=== PATIENT | female | born 1950 | race Caucasian/White ===

== ENCOUNTER 2020-04-06 13:09 | Inpatient (IN) | payer MEDICARE, OTHER ==
[~2020-04-06] VITALS: Ht 167.6 cm; Wt 104.0 kg
--- NOTE | 2020-04-06 13:33 | EKG ---
[address] [address] Test Date: 2020-04-06 Test Time: 13:30:25 Pat Name: MERARI BRADSHAW Department: Room: Gender: F Kiln Charger: : 1950 Requested By: YOLY NORRIS Order Number: [id number] Reading MD: Ozzie Rojas MD Measurements Intervals [place]son Rate: 75 P: 27 NE: 156 QRS: -25 QRSD: 96 T: -3 QT: 306 QTc: 344 Interpretive Statements SINUS RHYTHM NON-SPECIFIC ST/T CHANGES LAD Electronically Signed On 04-09-2020 12:17:53 CDT by Ozzie Rojas MD
[2020-04-06] MEDS ORDERED: CELE200C PO (13:47)
[2020-04-06] MEDS ORDERED: LOPE-101 PO (13:47)
[2020-04-06] MEDS ORDERED: CITA10TA4 PO (13:47)
[2020-04-06] MEDS ORDERED: FURO40TA4 PO (13:47)
[2020-04-06] MEDS ORDERED: CLOP75TA57 PO (13:47)
[2020-04-06] MEDS ORDERED: GABA100C81 PO (13:47)
[2020-04-06] MEDS ORDERED: ACET500T68 PO (13:47)
[2020-04-06] MEDS ORDERED: IBUP1TAB12 PO (13:47)
[2020-04-06] MEDS ORDERED: HYDR12.58 PO (13:47)
[2020-04-06] MEDS ORDERED: OMEP40CA45 PO (13:47)
[2020-04-06] MEDS ORDERED: SIMV20TA PO (13:47)
[2020-04-06] MEDS ORDERED: MELO15TA23 PO (13:47)
[2020-04-06] MEDS ORDERED: TRAM50TA PO (13:47)
[2020-04-06] MEDS ORDERED: DICL100G18 TP (13:47)
[2020-04-06] MEDS ORDERED: TRIA15OI TP (13:47)
[2020-04-06 13:54] LABS: BASO % 1 % (0-3); EOS # 0.1 x10^3/uL (0.0-0.7); EOS % 3 % (0-3); LYMPH # 1.6 x10^3/uL (1.0-4.8); LYMPH % 32 % (24-48); MEAN CORPUSCULAR HEMOGLOBIN 32 pg (25-35); MEAN CORPUSCULAR HGB CONC 33 g/dL (31-37); MEAN CORPUSCULAR VOLUME 95 fL (79-100); MONO # 0.4 x10^3/uL (0.0-1.1); MONO % 9 % (0-9); NEUT # 2.9 x10^3uL (1.8-7.7); NEUT % 56 % (31-73); PLATELET COUNT 244 x10^3/uL (140-400); RED BLOOD COUNT 4.13 x10^6/uL (3.50-5.40); RED CELL DISTRIBUTION WIDTH 13.6 % (11.5-14.5); WHITE BLOOD COUNT 5.1 x10^3/uL (4.0-11.0)
[2020-04-06 13:55] LABS: CALCIUM 8.9 mg/dL (8.5-10.1); CREATININE 0.7 mg/dL (0.6-1.0); GFR 82.7; POTASSIUM 3.7 mmol/L (3.5-5.1)
[2020-04-06] MEDS ORDERED: IOHEXOL 300 MG/ML 75 ML VIAL. IV ONE (14:00)
[2020-04-06 14:01] LABS: ALBUMIN 3.7 g/dL (3.4-5.0); ALBUMIN/GLOBULIN RATIO 1.1 (1.0-1.7); MAGNESIUM 2.2 mg/dL (1.8-2.4); TOTAL BILIRUBIN 0.5 mg/dL (0.2-1.0); TOTAL PROTEIN 7.1 g/dL (6.4-8.2)
--- NOTE | 2020-04-06 14:06 | PHYS DOC ---
Past History Past Medical History: Asthma, Cancer, Dementia, Depression, Fibromyalgia, GERD, Hypertension Past Surgical History: No Surgical History Alcohol Use: None General Adult EDM: Chief Complaint: MEDICAL CLEARANCE HPI: HPI: 6-year-old female presents for medical clearance of behavioral health admission. She is reported to be wandering, answering her door S, and having difficulty articulating thoughts. This is a change from her baseline over the last few weeks. Patient denies any medical complaints to me. Review of Systems: Review of Systems: Constitutional: Denies fever or chills Eyes: Denies change in visual acuity HENT: Denies nasal congestion or sore throat Respiratory: Denies cough or shortness of breath Cardiovascular: Denies chest pain or edema GI: Denies abdominal pain, nausea, vomiting, bloody stools or diarrhea : Denies dysuria Musculoskeletal: Denies back pain or joint pain Integument: Denies rash Neurologic: Denies headache, focal weakness or sensory changes Endocrine: Denies polyuria or polydipsia Lymphatic: Denies swollen glands Psychiatric: Denies depression or anxiety Heart Score: Risk Factors: Risk Factors: DM, Current or recent (<one month) smoker, HTN, HLP, family history of CAD, obesity. Risk Scores: Score 0 - 3: 2.5% MACE over next 6 weeks - Discharge Home Score 4 - 6: 20.3% MACE over next 6 weeks - Admit for Clinical Observation Score 7 - 10: 72.7% MACE over next 6 weeks - Early Invasive Strategies Current Medications: Current Meds: Current Medications Medications (Trade) Dose Ordered Sig/Henri Start Time Stop Time Status Last Admin Dose Admin Iohexol (Omnipaque 300 Mg/ml) 75 ml 1X ONCE 04/06/20 14:00 04/06/20 14:01 FL Allergies: Allergies: Allergies Coded Allergies Type Severity Reaction Last Updated Verified No Known Drug Allergies 04/06/20 No Physical Exam: PE: Constitutional: Well developed, obese, well nourished, no acute distress, non- toxic appearance. [] HENT: Normocephalic, atraumatic, bilateral external ears normal, oropharynx moist, no oral exudates, nose normal. [] Eyes: PERRLA, EOMI, conjunctiva normal, no discharge. [] Neck: Normal range of motion, no tenderness, supple, no stridor. [] Cardiovascular:Heart rate regular rhythm, no murmur [] Lungs & Thorax: Bilateral breath sounds clear to auscultation [] Abdomen: Bowel sounds normal, soft, no tenderness, no masses, no pulsatile masses. [] Skin: Warm, dry, no erythema, no rash. [] Back: No tenderness, no CVA tenderness. [] Extremities: No tenderness, no cyanosis, no clubbing, ROM intact, no edema. [] Neurologic: Alert, dementia, normal motor function, normal sensory function, no focal deficits noted. [] Psychologic: Affect normal, judgement normal, mood normal. [] Current Patient Data: Labs: Laboratory Tests Test 04/06/20 13:24 White Blood Count 5.1 x10^3/uL (4.0-11.0) Red Blood Count 4.13 x10^6/uL (3.50-5.40) Hemoglobin 13.0 g/dL (12.0-15.5) Hematocrit 39.0 % (36.0-47.0) Mean Corpuscular Volume 95 fL (79-100) Mean Corpuscular Hemoglobin 32 pg (25-35) Mean Corpuscular Hemoglobin Concent 33 g/dL (31-37) Red Cell Distribution Width 13.6 % (11.5-14.5) Platelet Count 244 x10^3/uL (140-400) Neutrophils (%) (Auto) 56 % (31-73) Lymphocytes (%) (Auto) 32 % (24-48) Monocytes (%) (Auto) 9 % (0-9) Eosinophils (%) (Auto) 3 % (0-3) Basophils (%) (Auto) 1 % (0-3) Neutrophils # (Auto) 2.9 x10^3uL (1.8-7.7) Lymphocytes # (Auto) 1.6 x10^3/uL (1.0-4.8) Monocytes # (Auto) 0.4 x10^3/uL (0.0-1.1) Eosinophils # (Auto) 0.1 x10^3/uL (0.0-0.7) Basophils # (Auto) 0.0 x10^3/uL (0.0-0.2) Sodium Level 142 mmol/L (136-145) Potassium Level 3.7 mmol/L (3.5-5.1) Chloride Level 106 mmol/L (98-107) Carbon Dioxide Level 26 mmol/L (21-32) Anion Gap 10 (6-14) Blood Urea Nitrogen 17 mg/dL (7-20) Creatinine 0.7 mg/dL (0.6-1.0) Estimated GFR (Cockcroft-Gault) 82.7 BUN/Creatinine Ratio 24 (6-20) H Glucose Level 167 mg/dL (70-99) H Calcium Level 8.9 mg/dL (8.5-10.1) Magnesium Level 2.2 mg/dL (1.8-2.4) Total Bilirubin 0.5 mg/dL (0.2-1.0) Aspartate Amino Transferase (AST) 16 U/L (15-37) Alanine Aminotransferase (ALT) 21 U/L (14-59) Alkaline Phosphatase 118 U/L (46-116) H Total Protein 7.1 g/dL (6.4-8.2) Albumin 3.7 g/dL (3.4-5.0) Albumin/Globulin Ratio 1.1 (1.0-1.7) Vital Signs: Vital Signs Date Time Temp Pulse Resp B/P (MAP) Pulse Ox O2 Delivery O2 Flow Rate FiO2 04/06/20 13:28 98.0 73 16 144/66 (92) 95 Room Air EKG: EKG: Sinus rhythm, rate 75, leftward axis, no ST elevation or depressions. [] Radiology/Procedures: Radiology/Procedures: [] Impressions: CT scan of the head without and with contrast 04/06/2020 Clinical History: Cognitive decline Technique: Contiguous, 5 mm axial sections were obtained through the head without and with the use of intravenous contrast. 70 cc of Omnipaque 300 were administered intravenously during this examination. One or more of the following individualized dose reduction techniques were utilized for this study: 1. Automated exposure control. 2. Adjustment of the mA and/or kV according to patient size. 3. Use of iterative reconstruction technique. Findings: No previous studies are available for comparison. There is generalized parenchymal atrophy. Areas of decreased attenuation are seen within the periventricular and subcortical white matter of both cerebral hemispheres consistent with areas of small vessel ischemic disease. No acute parenchymal abnormality is seen. No area of abnormal contrast enhancement is noted. No extra-axial fluid collection is noted. No skull fracture is seen. Impression: No acute intracranial abnormality is seen. Electronically signed by: Jules Dhillon MD (04/06/2020 2:35 PM) [id number] DICTATED AND SIGNED BY: JULES DHILLON MD DATE: 04/06/20 1435 CC: YOLY NORRIS DO ~ Course & Med Decision Making: Course & Med Decision Making Pertinent Labs and Imaging studies reviewed. (See chart for details) The patient's EKG is unremarkable. Her head CT is negative for acute findings. Her labs are unremarkable. Her urinalysis suggestive of UTI. I will treat her with first dose of Keflex in the ED. I do not believe this precludes her from behavioral health admission. She is medically stable for behavioral admission at this time. [] Dragon Disclaimer: Edmar Disclaimer: This electronic medical record was generated, in whole or in part, using a voice recognition dictation system. Departure Departure: Impression: Primary Impression: Medical clearance for psychiatric admission Additional Impression: UTI (urinary tract infection) Qualified Codes: N30.01 - Acute cystitis with hematuria Disposition: 09 ADMITTED INPATIENT Condition: STABLE YOLY NORRIS DO April 06, 2020 14:06
--- NOTE | 2020-04-06 14:38 | RAD ---
CT scan of the head without and with contrast 04/06/2020 Clinical History: Cognitive decline Technique: Contiguous, 5 mm axial sections were obtained through the head without and with the use of intravenous contrast. 70 cc of Omnipaque 300 were administered intravenously during this examination. One or more of the following individualized dose reduction techniques were utilized for this study: 1. Automated exposure control. 2. Adjustment of the mA and/or kV according to patient size. 3. Use of iterative reconstruction technique. Findings: No previous studies are available for comparison. There is generalized parenchymal atrophy. Areas of decreased attenuation are seen within the periventricular and subcortical white matter of both cerebral hemispheres consistent with areas of small vessel ischemic disease. No acute parenchymal abnormality is seen. No area of abnormal contrast enhancement is noted. No extra-axial fluid collection is noted. No skull fracture is seen. Impression: No acute intracranial abnormality is seen. Electronically signed by: Jules Edwards MD (04/06/2020 2:35 PM) [id number]
[2020-04-06 14:47] LABS: BILIRUBIN,URINE NEG (NEG); COLOR,URINE YELLOW; GLUCOSE,URINE NEG (NEG); NITRITE,URINE NEG (NEG)
[2020-04-06 14:50] LABS: CLARITY,URINE HAZY
[2020-04-06 14:53] LABS: BACTERIA,URINE MOD /HPF (0-FEW); SQUAMOUS EPITHELIAL CELL,UR MANY /LPF
[2020-04-06] MEDS ORDERED: CEPHALEXIN 250 MG CAPSULE PO ONE (15:30)
[2020-04-06 16:43] VITALS: BP 123/88
[2020-04-06] MEDS ORDERED: METHYL SALICYLATE/MENTHOL TOPICAL OINTMENT 57GM TUBE. TP PRN (18:00)
[2020-04-06] MEDS ORDERED: traMADol 50 MG TABLET PO PRN (18:00)
[2020-04-06] MEDS ORDERED: MAGNESIUM HYDROXIDE 2,400 MG/30 ML ORAL.SUSP. PO PRN (18:00)
[2020-04-06] MEDS ORDERED: MAG HYDROX/AL HYDROX/SIMETH 30 ML ORAL.SUSP PO PRN (18:00)
[2020-04-06] MEDS ORDERED: LOPERAMIDE 2 MG CAPSULE PO PRN (18:00)
[2020-04-06] MEDS: SIMVASTATIN 20 MG TABLET PO SCH (19:56)
[2020-04-06] MEDS: GABAPENTIN 100 MG CAPSULE. PO SCH (19:56)
[2020-04-06] MEDS ORDERED: IBUPROFEN PO SCH (21:00)
[2020-04-06] MEDS ORDERED: DIPHENHYDRAMINE CIT PO SCH (21:00)
[2020-04-06] MEDS: TRIAMCINOLONE ACETONIDE 0.1% TOPICAL OINTMENT 15GM TUBE. TP SCH (21:00)
--- NOTE | 2020-04-06 21:54 | PDOC ---
Exam Note: Ottoniel Note: Please also refer to the separate dictated note~for this date of service dictated separately. Discussed the patient with Nursing staff reviewed the chart.~Reviewed interim history and current functioning. Reviewed vital signs,~Labs/ Radiology~and current medications noted below. Continue current treatment with the changes noted in the dictated addendum note Assessment: Vital Signs/I&O: Vital Signs Date Time Temp Pulse Resp B/P (MAP) Pulse Ox O2 Delivery O2 Flow Rate FiO2 04/06/20 20:53 97.9 96 04/06/20 16:43 64 18 123/88 (100) Room Air Labs: Laboratory Tests Test 04/06/20 13:24 04/06/20 14:32 White Blood Count 5.1 x10^3/uL (4.0-11.0) Red Blood Count 4.13 x10^6/uL (3.50-5.40) Hemoglobin 13.0 g/dL (12.0-15.5) Hematocrit 39.0 % (36.0-47.0) Mean Corpuscular Volume 95 fL (79-100) Mean Corpuscular Hemoglobin 32 pg (25-35) Mean Corpuscular Hemoglobin Concent 33 g/dL (31-37) Red Cell Distribution Width 13.6 % (11.5-14.5) Platelet Count 244 x10^3/uL (140-400) Neutrophils (%) (Auto) 56 % (31-73) Lymphocytes (%) (Auto) 32 % (24-48) Monocytes (%) (Auto) 9 % (0-9) Eosinophils (%) (Auto) 3 % (0-3) Basophils (%) (Auto) 1 % (0-3) Neutrophils # (Auto) 2.9 x10^3uL (1.8-7.7) Lymphocytes # (Auto) 1.6 x10^3/uL (1.0-4.8) Monocytes # (Auto) 0.4 x10^3/uL (0.0-1.1) Eosinophils # (Auto) 0.1 x10^3/uL (0.0-0.7) Basophils # (Auto) 0.0 x10^3/uL (0.0-0.2) Sodium Level 142 mmol/L (136-145) Potassium Level 3.7 mmol/L (3.5-5.1) Chloride Level 106 mmol/L (98-107) Carbon Dioxide Level 26 mmol/L (21-32) Anion Gap 10 (6-14) Blood Urea Nitrogen 17 mg/dL (7-20) Creatinine 0.7 mg/dL (0.6-1.0) Estimated GFR (Cockcroft-Gault) 82.7 BUN/Creatinine Ratio 24 (6-20) H Glucose Level 167 mg/dL (70-99) H Calcium Level 8.9 mg/dL (8.5-10.1) Magnesium Level 2.2 mg/dL (1.8-2.4) Total Bilirubin 0.5 mg/dL (0.2-1.0) Aspartate Amino Transferase (AST) 16 U/L (15-37) Alanine Aminotransferase (ALT) 21 U/L (14-59) Alkaline Phosphatase 118 U/L (46-116) H Total Protein 7.1 g/dL (6.4-8.2) Albumin 3.7 g/dL (3.4-5.0) Albumin/Globulin Ratio 1.1 (1.0-1.7) Urine Collection Type Unknown Urine Color Yellow Urine Clarity Hazy Urine pH 5.5 Urine Specific [place] >=1.030 Urine Protein Neg (NEG-TRACE) Urine Glucose (UA) Neg mg/dL (NEG) Urine Ketones (Stick) Neg mg/dL (NEG) Urine Blood Small (NEG) Urine Nitrite Neg (NEG) Urine Bilirubin Neg (NEG) Urine Urobilinogen Dipstick 1.0 mg/dL (0.2 mg/dL) Urine Leukocyte Esterase Small (NEG) Urine RBC 1-2 /HPF (0-2) Urine WBC 5-10 /HPF (0-4) Urine Squamous Epithelial Cells Many /LPF Urine Bacteria Mod /HPF (0-FEW) Urine Mucus Slight /LPF Current Medications: Meds: Current Medications Medications (Trade) Dose Ordered Sig/Henri Route PRN Reason Start Time Stop Time Status Last Admin Dose Admin Iohexol (Omnipaque 300 Mg/ml) 75 ml 1X ONCE IV 04/06/20 14:00 04/06/20 14:01 DC 04/06/20 14:12 Cephalexin HCl (Keflex) 500 mg 1X ONCE PO 04/06/20 15:30 04/06/20 15:31 DC 04/06/20 15:30 Gabapentin (Neurontin) 100 mg TID PO 04/06/20 21:00 04/06/20 19:56 Simvastatin (Zocor) 20 mg HS PO 04/06/20 21:00 04/06/20 19:56 I have reviewed the current psychotropics carefully including drug interactions. Risk benefit ratio favors no change other than as noted in my dictated progress note. JAINA BROOKS MD April 06, 2020 21:54
--- NOTE | 2020-04-06 23:55 | HP ---
ADMIT DATE: 04/06/2020 PSYCHIATRIC ADMISSION HISTORY/EVALUATION This note covers the elements not covered in my initial note 04/06/2020. SUBJECTIVE: I met with the patient evening of 04/06/2020. Previously discussed with Sapna Vance, drug abuse program coordinator and nursing staff. IDENTIFYING DATA: The patient is a 69-year-old female referred to us from the [place] [employer] [facility] and she was appointed a temporary guardian through this program. She had been living at [facility] in [place], [place] since 03/2019. She has been getting increasingly confused, having difficulty articulating her thoughts, poor nutritional and unable to care for herself. Reportedly, she got into a car with a man to go grocery shopping. She is unable to cook meals and at one point answered the door to a stranger with her shirt off. She has been increasingly confused, paranoid, and oblivious of her circumstances. Behavior is deemed dangerous under the current living situation, referred for inpatient psychiatric stabilization. CHIEF COMPLAINT: "I came today. I don't know the year. I don't know president." The patient answered after I questioned her about the above. HISTORY OF PRESENT ILLNESS: Reportedly, the patient has a history of dementia, probably Alzheimer's, vascular type. She has been residing at the above noted apartment since 03/2019. Recently behaviors have been compromised significantly by her confusion. She has been trying to wander out of the apartment oblivious of the dangers. She has had sleep and appetite changes. No suicidal or homicidal ideation. No clear history of bipolar disorder. PAST PSYCHIATRIC HISTORY: As above. MEDICAL HISTORY: GERD, fibromyalgia, asthma, history of breast cancer, hypertension, bilateral lower extremity edema, and osteoarthritis. DRUG ALLERGIES: Negative. CODE STATUS: Full code. CURRENT PSYCHOTROPICS: Celexa 10 mg a day, Neurontin 100 mg t.i.d. FAMILY HISTORY: Noncontributory. SOCIAL HISTORY: No history of alcohol, drug abuse, physical, sexual or elder abuse. She is not known to be a perpetrator. She does seem to have an expressive aphasia. Receptive skills seem better as I assessed her. REACTION TO HOSPITALIZATION: The patient oblivious of this. ASSETS: Support from the [place] [facility]. MENTAL STATUS EXAMINATION: The patient was seen individually in the evening of 04/06/2020. She is pleasant, verbal, but very confused with discrepant impairment of her expressive language skills. Insight, judgment, recent and remote memory, attention, concentration, fund of knowledge poor, consistent with her diagnoses. IMPRESSION: Major neurocognitive disorder, Alzheimer, vascular with delusion, depression, behavioral disturbance; anxiety disorder, unspecified; impulse control disorder, unspecified. Rest as above. PLAN: Admit to Geropsychiatry Unit at [facility]. I will see the patient daily individually from a psychiatric standpoint. Medical followup with Dr. Thayer/Dr. Gordon. Continue the patient on her current psychotropics. Have neuropsychological evaluation capacity to make decisions by Dr. Fuentes. We will make further changes and adjustments in her psychotropics post baseline assessment. Estimated length of stay 10-12 days. DISPOSITION: Plans probably will need [facility] placement, but will be assessed for assisted living as well. JANIA BROOKS MD DR: ED/lisa JOB#: [id number] / [id number]
[2020-04-07 04:06] LABS: THYROXINE 6.3 ug/dL (4.5-12.0)
[2020-04-07 06:16] VITALS: BP 124/76
[2020-04-07 07:08] LABS: HEMOGLOBIN A1C 5.7 % (4.8-5.6)
[2020-04-07] MEDS: CELECOXIB 100 MG CAPSULE PO SCH (08:45)
[2020-04-07] MEDS: CLOPIDOGREL BISULFATE 75 MG TABLET PO SCH (08:45)
[2020-04-07] MEDS: PANTOPRAZOLE 40 MG TABLET. PO SCH (08:45)
[2020-04-07] MEDS: FUROSEMIDE 40 MG TABLET PO SCH (08:45)
[2020-04-07] MEDS: hydroCHLOROthiazide 12.5 MG CAPSULE PO SCH (08:45)
[2020-04-07] MEDS: GABAPENTIN 100 MG CAPSULE. PO SCH ×3 (08:45→20:30)
[2020-04-07] MEDS: CITALOPRAM 10 MG TABLET. PO SCH (08:45)
[2020-04-07] MEDS: TRIAMCINOLONE ACETONIDE 0.1% TOPICAL OINTMENT 15GM TUBE. TP SCH ×2 (08:46→20:34)
[2020-04-07] MEDS: MELOXICAM 15 MG TABLET. PO SCH (08:50)
[2020-04-07 10:38] LABS: THYROID STIM HORMONE (TSH) 1.889 uIU/mL (0.358-3.740)
[2020-04-07 15:30] VITALS: BP 114/57
[2020-04-07] MEDS: SIMVASTATIN 20 MG TABLET PO SCH (20:30)
[2020-04-07] MEDS: ACETAMINOPHEN 500 MG TABLET PO PRN (20:52)
--- NOTE | 2020-04-07 22:02 | PDOC ---
Exam Note: Ottoniel Note: Please also refer to the separate dictated note~for this date of service dictated separately.~Patient seen individually. Discussed the patient with Nursing staff reviewed the chart.~Reviewed interim history and current functioning. Reviewed vital signs,~Labs/ Radiology~and current medications noted below. Continue current treatment with the changes noted in the dictated addendum note Assessment: Vital Signs/I&O: Vital Signs Date Time Temp Pulse Resp B/P (MAP) Pulse Ox O2 Delivery O2 Flow Rate FiO2 04/07/20 21:02 98.8 96 04/07/20 15:30 62 16 114/57 (76) 04/06/20 16:43 Room Air I & O 04/06/20 04/06/20 04/07/20 14:59 22:59 06:59 Intake Total 360 ml Balance 360 ml Current Medications: Meds: Current Medications Medications (Trade) Dose Ordered Sig/Henri Route PRN Reason Start Time Stop Time Status Last Admin Dose Admin Citalopram Hydrobromide (CeleXA) 10 mg DAILY PO 04/07/20 09:00 04/07/20 08:45 Clopidogrel Bisulfate (Plavix) 75 mg DAILY PO 04/07/20 09:00 04/07/20 08:45 Furosemide (Lasix) 40 mg DAILY PO 04/07/20 09:00 04/07/20 08:45 Meloxicam (Mobic) 15 mg DAILY PO 04/07/20 09:00 04/07/20 08:50 Celecoxib (CeleBREX) 200 mg DAILY PO 04/07/20 09:00 04/07/20 08:45 Hydrochlorothiazide (Microzide) 12.5 mg DAILY PO 04/07/20 09:00 04/07/20 08:45 Pantoprazole Sodium (Protonix) 40 mg DAILYAC PO 04/07/20 07:30 04/07/20 08:45 I have reviewed the current psychotropics carefully including drug interactions. Risk benefit ratio favors no change other than as noted in my dictated progress note. Diagnosis: Problems: (1) Major neurocognitive disorder, due to vascular disease, with behavioral disturbance, mild (2) Dementia in Alzheimer's disease with delusions (3) Dementia in Alzheimer's disease with depression (4) Dementia, vascular, with delusions (5) Dementia, vascular, with depression (6) Anxiety disorder, unspecified (7) Impulse control disorder, unspecified JANIA BROOKS MD April 07, 2020 22:02
--- NOTE | 2020-04-08 03:06 | CONS ---
DATE OF CONSULTATION: 04/07/2020 ATTENDING PHYSICIAN: Dr. Garcia. We are asked to see this patient for medical consultation. HISTORY OF PRESENT ILLNESS: The patient is a very pleasant 69-year-old female who was sent here by local city official. She had lived alone in an apartment in [facility]. She has profound dementia. She has difficulty describing things, a very poor historian. She has reached the point she cannot take care of herself. She is in the process of getting a guardianship. There are no other family members here. PAST MEDICAL HISTORY: Significant for asthma, gastroesophageal reflux disease, fibromyalgia, dementia, breast cancer, hypertension, chronic edema and degenerative arthritis. ALLERGIES: Current medicines are reviewed; she has no recorded drug allergies. CURRENT MEDICINES: Include Celebrex 200 mg daily, citalopram 10 mg daily, Plavix, Lasix, Neurontin, hydrochlorothiazide, loperamide, meloxicam, omeprazole, Zocor and Ultram. She also had on her list 2 other nonsteroidals including meloxicam and ibuprofen. SOCIAL HISTORY: She is a nonsmoker, nondrinker. FAMILY HISTORY: Unobtainable. REVIEW OF SYSTEMS: Unobtainable. PHYSICAL EXAMINATION: GENERAL: When I saw her, this is a pleasant female, but very confused. She is not aware of person, place or time and a very poor historian. VITAL SIGNS: Her initial vital signs showed a blood pressure of 123/88, pulse is 64 and regular, temperature 97.8 degrees Fahrenheit, and her oxygen saturations were 94% on room air. HEENT: The head is without trauma. Pupils are reactive. Sclerae nonicteric. The oropharynx is clear. NECK: Supple, no bruits identified. LUNGS: Good breath sounds, otherwise clear. CARDIOVASCULAR: Showed regular heart tones. No obvious gallops. Peripheral pulses are palpable and full. ABDOMEN: Markedly obese, protuberant. No organomegaly. Bowel sounds are hypoactive. EXTREMITIES: Showed degenerative arthritis change in the knees. There is 3+ nonpitting edema of the lower extremities. NEUROLOGIC FINDINGS: Speech is fluent. She is not aware of person, place or time. PERTINENT LABORATORY STUDIES: Her hemoglobin is maintained at 13.0 g/dL with a white count of 5100. Her chemistry panel showed normal electrolytes, creatinine is 0.7 mg/dL, nonfasting blood sugar 167. Transaminases all within normal range. Thyroid functions are normal. ASSESSMENT: 1. This 69-year-old female has profound dementia. She is unable to care for herself and she is here for evaluation and guardianship. 2. Degenerative arthritis. 3. Morbid obesity. 4. Gastroesophageal reflux disease. 5. History of depression. 6. History of breast cancer. 7. Chronic pedal edema. RECOMMENDATIONS: 1. I have examined the patient. She is stable from medical standpoint. 2. There are 3 nonsteroidal anti-inflammatory drugs listed on her medication list, she only needs to be on 1 as needed. 3. Diet as tolerated. 4. We should gladly follow along during the course of her inpatient evaluation. Thank you again for asking me to see this patient for medical consultation. ALEXEY DUARTE MD DR: PAULINO/lisa JOB#: [id number] / [id number] CHANCE Edmondson MD
[2020-04-08 05:38] VITALS: BP 117/72
[2020-04-08] MEDS: MELOXICAM 15 MG TABLET. PO SCH (08:37)
[2020-04-08] MEDS: CELECOXIB 100 MG CAPSULE PO SCH (08:37)
[2020-04-08] MEDS: CITALOPRAM 10 MG TABLET. PO SCH (08:37)
[2020-04-08] MEDS: PANTOPRAZOLE 40 MG TABLET. PO SCH (08:37)
[2020-04-08] MEDS: GABAPENTIN 100 MG CAPSULE. PO SCH ×3 (08:37→20:08)
[2020-04-08] MEDS: CLOPIDOGREL BISULFATE 75 MG TABLET PO SCH (08:37)
[2020-04-08] MEDS: hydroCHLOROthiazide 12.5 MG CAPSULE PO SCH (08:37)
[2020-04-08] MEDS: FUROSEMIDE 40 MG TABLET PO SCH (08:38)
[2020-04-08] MEDS: TRIAMCINOLONE ACETONIDE 0.1% TOPICAL OINTMENT 15GM TUBE. TP SCH ×2 (08:38→20:09)
[2020-04-08 08:49] LABS: BASO % 0 % (0-3); EOS # 0.2 x10^3/uL (0.0-0.7); EOS % 6 % (0-3); HEMATOCRIT 37.3 % (36.0-47.0); HEMOGLOBIN 12.6 g/dL (12.0-15.5); LYMPH # 1.2 x10^3/uL (1.0-4.8); LYMPH % 33 % (24-48); MEAN CORPUSCULAR HEMOGLOBIN 32 pg (25-35); MEAN CORPUSCULAR HGB CONC 34 g/dL (31-37); MEAN CORPUSCULAR VOLUME 94 fL (79-100); MONO # 0.4 x10^3/uL (0.0-1.1); MONO % 10 % (0-9); NEUT # 1.9 x10^3uL (1.8-7.7); NEUT % 52 % (31-73); PLATELET COUNT 217 x10^3/uL (140-400); RED BLOOD COUNT 3.98 x10^6/uL (3.50-5.40); RED CELL DISTRIBUTION WIDTH 13.4 % (11.5-14.5); WHITE BLOOD COUNT 3.7 x10^3/uL (4.0-11.0)
[2020-04-08 09:41] LABS: ALBUMIN 3.1 g/dL (3.4-5.0); CALCIUM 8.5 mg/dL (8.5-10.1); CREATININE 0.6 mg/dL (0.6-1.0); GFR 98.8; POTASSIUM 3.5 mmol/L (3.5-5.1); TOTAL BILIRUBIN 0.4 mg/dL (0.2-1.0); TOTAL PROTEIN 6.2 g/dL (6.4-8.2)
[2020-04-08 16:28] VITALS: BP 110/72
[2020-04-08] MEDS: SIMVASTATIN 20 MG TABLET PO SCH (20:09)
--- NOTE | 2020-04-08 22:16 | PDOC ---
Exam Note: Ottoniel Note: Please also refer to the separate dictated note~for this date of service dictated separately.~Patient seen individually. Discussed the patient with Nursing staff reviewed the chart.~Reviewed interim history and current functioning. Reviewed vital signs,~Labs/ Radiology~and current medications noted below. Continue current treatment with the changes noted in the dictated addendum note Assessment: Vital Signs/I&O: Vital Signs Date Time Temp Pulse Resp B/P (MAP) Pulse Ox O2 Delivery O2 Flow Rate FiO2 04/08/20 21:09 98.4 96 04/08/20 16:28 58 110/72 (85) 04/08/20 05:38 16 04/06/20 16:43 Room Air I & O 04/07/20 04/07/20 04/08/20 14:59 22:59 06:59 Intake Total 960 ml 360 ml Balance 960 ml 360 ml Labs: Laboratory Tests Test 04/08/20 08:05 White Blood Count 3.7 x10^3/uL (4.0-11.0) L Red Blood Count 3.98 x10^6/uL (3.50-5.40) Hemoglobin 12.6 g/dL (12.0-15.5) Hematocrit 37.3 % (36.0-47.0) Mean Corpuscular Volume 94 fL (79-100) Mean Corpuscular Hemoglobin 32 pg (25-35) Mean Corpuscular Hemoglobin Concent 34 g/dL (31-37) Red Cell Distribution Width 13.4 % (11.5-14.5) Platelet Count 217 x10^3/uL (140-400) Neutrophils (%) (Auto) 52 % (31-73) Lymphocytes (%) (Auto) 33 % (24-48) Monocytes (%) (Auto) 10 % (0-9) H Eosinophils (%) (Auto) 6 % (0-3) H Basophils (%) (Auto) 0 % (0-3) Neutrophils # (Auto) 1.9 x10^3uL (1.8-7.7) Lymphocytes # (Auto) 1.2 x10^3/uL (1.0-4.8) Monocytes # (Auto) 0.4 x10^3/uL (0.0-1.1) Eosinophils # (Auto) 0.2 x10^3/uL (0.0-0.7) Basophils # (Auto) 0.0 x10^3/uL (0.0-0.2) Sodium Level 145 mmol/L (136-145) Potassium Level 3.5 mmol/L (3.5-5.1) Chloride Level 107 mmol/L (98-107) Carbon Dioxide Level 30 mmol/L (21-32) Anion Gap 8 (6-14) Blood Urea Nitrogen 12 mg/dL (7-20) Creatinine 0.6 mg/dL (0.6-1.0) Estimated GFR (Cockcroft-Gault) 98.8 BUN/Creatinine Ratio 20 (6-20) Glucose Level 95 mg/dL (70-99) Calcium Level 8.5 mg/dL (8.5-10.1) Total Bilirubin 0.4 mg/dL (0.2-1.0) Aspartate Amino Transferase (AST) 15 U/L (15-37) Alanine Aminotransferase (ALT) 18 U/L (14-59) Alkaline Phosphatase 99 U/L (46-116) Total Protein 6.2 g/dL (6.4-8.2) L Albumin 3.1 g/dL (3.4-5.0) L Albumin/Globulin Ratio 1.0 (1.0-1.7) Current Medications: I have reviewed the current psychotropics carefully including drug interactions. Risk benefit ratio favors no change other than as noted in my dictated progress note. Diagnosis: Problems: (1) Impulse control disorder, unspecified (2) Anxiety disorder, unspecified (3) Dementia, vascular, with depression (4) Dementia, vascular, with delusions (5) Dementia in Alzheimer's disease with depression (6) Dementia in Alzheimer's disease with delusions (7) Major neurocognitive disorder, due to vascular disease, with behavioral disturbance, mild JANIA BROOKS MD April 08, 2020 22:16
[2020-04-09 06:23] VITALS: BP 142/72
--- NOTE | 2020-04-09 08:07 | PDOC ---
Exam Note: Ottoniel Note: This note is a late entry for 04/07/2020 covers elements not covered in my initial note. Subjective: The patient was seen face to face in the evening of 04/07/2020. Nursing report was with Bradley JACQUES. Discussed the patient with nursing staff in the evening reviewed the chart. She slept 7-3/4 hours previous night. She has been pleasant, confused but was in the West hallway, quite agitated, restless, hitting out at people, oblivious of what she is doing. Review of Systems: Ambulation impaired. No CV, GI/, Pulmonary, Eye, ENT system symptoms on review. Mental Status Exam: Oriented to himself. Insight and judgment, recent and remote memory, attention and concentration, fund of knowledge is poor consistent with her diagnosis. She in unaware of the date of as I questioned her knew at one point she was in the hospital. Laboratory Data: Reviewed. Impression: Major neurocognitive disorder Alzheimer, vascular with delusion, depression, behavioral disturbance. Anxiety disorder unspecified. Impulse control disorder unspecified. Plan: Continue current psychotropics. Neurontin 100 mg t.i.d., Celexa 10 mg a day. May consider changing Celexa to Zoloft and adding Exelon patch and consider Depakote in place of Neurontin. Rest unchanged. Assessment: Vital Signs/I&O: Vital Signs Date Time Temp Pulse Resp B/P (MAP) Pulse Ox O2 Delivery O2 Flow Rate FiO2 04/09/20 06:23 97.9 58 18 142/72 (95) 95 04/06/20 16:43 Room Air I & O 04/08/20 04/08/20 04/09/20 15:00 23:00 07:00 Intake Total 960 ml 340 ml Balance 960 ml 340 ml Current Medications: I have reviewed the current psychotropics carefully including drug interactions. Risk benefit ratio favors no change other than as noted in my dictated progress note. Diagnosis: Problems: (1) Impulse control disorder, unspecified (2) Anxiety disorder, unspecified (3) Dementia, vascular, with depression (4) Dementia, vascular, with delusions (5) Dementia in Alzheimer's disease with depression (6) Dementia in Alzheimer's disease with delusions (7) Major neurocognitive disorder, due to vascular disease, with behavioral disturbance, mild JANIA BROOKS MD Apr 09, 2020 08:07
[2020-04-09] MEDS: SERTRALINE 25 MG TABLET. PO SCH (08:52)
[2020-04-09] MEDS: GABAPENTIN 100 MG CAPSULE. PO SCH ×3 (08:52→19:53)
[2020-04-09] MEDS: FUROSEMIDE 40 MG TABLET PO SCH (08:53)
[2020-04-09] MEDS: MELOXICAM 15 MG TABLET. PO SCH (08:53)
[2020-04-09] MEDS: hydroCHLOROthiazide 12.5 MG CAPSULE PO SCH (08:53)
[2020-04-09] MEDS: CELECOXIB 100 MG CAPSULE PO SCH (08:53)
[2020-04-09] MEDS: RIVASTIGMINE 4.6MG PATCH. TD SCH (08:53)
[2020-04-09] MEDS: PANTOPRAZOLE 40 MG TABLET. PO SCH (08:53)
[2020-04-09] MEDS: CLOPIDOGREL BISULFATE 75 MG TABLET PO SCH (08:53)
[2020-04-09] MEDS: TRIAMCINOLONE ACETONIDE 0.1% TOPICAL OINTMENT 15GM TUBE. TP SCH (08:55)
[2020-04-09] MEDS ORDERED: TRIAMCINOLONE ACETONIDE 0.1% TOPICAL OINTMENT 15GM TUBE. TP PRN (10:15)
[2020-04-09 15:42] VITALS: BP 107/68
--- NOTE | 2020-04-09 15:51 | TX PLAN ---
Interdisciplinary Tx Plan Admission Information April 06, 2020 at 16:10 Legal Status (on Admission): Voluntary, Court Appointed Guardian DPOA/Guardian Name: Ashley Fields- guardian Contact Other Contact Name: Major Neal- 911 emergency services dispatcher Other Contact Verified Code Status: Full Code Allergies: Coded Allergies: No Known Drug Allergies (Unverified , 04/06/20) Diagnoses Primary Diagnosis: Major neurocognitive disroder vascular Alzheimer's with delusions, depression, BD; Anxiety d/o, Impulse control d/o Reasons for Admission: Agitated, Confusion/Disoriented, Other Problem in Patient's Words: Per Major Neal, 911 emergency services dispatcher at [facility], Yoly has had impairmed cognitive ability since the time she was moved in (March 2019) and left by her previous pediatric acute care unit nurse. It is a safety concern so Major called APS and Jena was appoineted a guardian recently. Additional Admission Comments: Per intake record, Yoly has trouble articulating her thoughts, difficulty telling you what she wants, poor nutrition, unable to cook meals, answered the door with her shirt off, periods of agitation when she can't express herself fully, went to a Dr. appointment for BP check got disoriented and ended up in o Covid screening tent, and reports she got in a car with a man to go grocery shopping. Problems Active Problems: Aphasia Cognitive impairment Unable to cook for herself Uncertain that she was taking her medications as prescribed Safety concern Little to no family support Inactive Problems: Medication compliant Cooperative with assessments Pt Strengths/Limitations Ability for Mellette: Fair Cognitive Functioning/Ability: Fair Communication Skills/Ability: Poor Financial Resources: Fair Insight/Judgement: Poor Intellectual Ability: Fair Physical Health: Fair Social Skills: Fair Stability in Family: Poor Verbal Skills: Poor Discharge Criteria Discharge Criteria: Adequate arrangements @DC, Adequate self-care Preliminary Discharge Plan Preliminary DC Plan: Assisted Living Other Arrangements: [facility] Fall Risk: High Initial D/C Plan Assisted living community for support with homemaking, meal preparation, medication admnsitration, and 24 hour supervision Identified Discharge Needs: F/U with PCP and psychiatrist is available. Currently Utilized Resources Currently Utilized Resources/P: PCP Referrals Community Resources: Psychiatrist Identified Problems/Hx/Goals Objectives/Short-Term Goals Short Term Goals: Medication Stabilization, Monitor Med Effects, Prevent Deterioration Short Term Goals in Patient's: " Trying to see things and go home." Interventions/Frequency Staff Interventions/Frequency&: Nursing to provide routine safety checks, medication administration, and ADL support. Psychiatry 3-5 times per week. SW visits twice weekly. Encouragement to participate in SW and recreational therapy group activities. History Vocational History: Yoly worked as a respiratory therapist. Social: Yoly has enjoyed reading, painting, and going to the [facility]. Education: Yoly states she attended [employer] and graduated 12th grade. She attended training to be a respiratory therapist. Community Follow-up PCP and psychiatry, if available Community Provider/Family Inpu: abhijit Ramirez, will be involved in team meeting on 04/16/2020. Treatment Plan Explained Patient/Signals Intelligence Analyst had this treatment plan explained to him/her as indicated by the signature below and has been given the opportunity to ask questions and make suggestions: Date: Patient/Signals Intelligence Analyst Signature: NATA HAMMOND Apr 09, 2020 15:51
[2020-04-09] MEDS: SIMVASTATIN 20 MG TABLET PO SCH (19:53)
--- NOTE | 2020-04-09 22:06 | PDOC ---
Exam Note: Ottoniel Note: Please also refer to the separate dictated note~for this date of service dictated separately.~Patient seen individually. Discussed the patient with Nursing staff reviewed the chart.~Reviewed interim history and current functioning. Reviewed vital signs,~Labs/ Radiology~and current medications noted below. Continue current treatment with the changes noted in the dictated addendum note Assessment: Vital Signs/I&O: Vital Signs Date Time Temp Pulse Resp B/P (MAP) Pulse Ox O2 Delivery O2 Flow Rate FiO2 04/09/20 18:34 98.2 04/09/20 15:42 62 16 107/68 (81) 95 04/06/20 16:43 Room Air I & O 04/08/20 04/08/20 04/09/20 15:00 23:00 07:00 Intake Total 960 ml 340 ml Balance 960 ml 340 ml Current Medications: Meds: Current Medications Medications (Trade) Dose Ordered Sig/Henri Route PRN Reason Start Time Stop Time Status Last Admin Dose Admin Sertraline HCl (Zoloft) 25 mg DAILY PO 04/09/20 09:00 04/11/20 11:00 04/09/20 08:52 Rivastigmine (Exelon) 1 patch DAILY TD 04/09/20 09:00 04/09/20 08:53 I have reviewed the current psychotropics carefully including drug interactions. Risk benefit ratio favors no change other than as noted in my dictated progress note. Diagnosis: Problems: (1) Impulse control disorder, unspecified (2) Anxiety disorder, unspecified (3) Dementia, vascular, with depression (4) Dementia, vascular, with delusions (5) Dementia in Alzheimer's disease with depression (6) Dementia in Alzheimer's disease with delusions (7) Major neurocognitive disorder, due to vascular disease, with behavioral disturbance, mild JANIA BROOKS MD Apr 09, 2020 22:06
[2020-04-10 06:36] VITALS: BP 104/64
--- NOTE | 2020-04-10 06:48 | PDOC ---
Exam Note: Ottoniel Note: This note is a late entry for 04/08/2020 covers elements not covered in my initial note. Subjective: The patient was seen face to face in the evening of 04/08/2020. Nursing report was with Bradley JACQUES. Discussed the patient with nursing staff in the evening reviewed the chart. She slept 6-3/4 hours previous night. She remains somewhat withdrawn, confused but receptive language skills are better than expressive. I met with her in her room. She has been isolative, compliant with medications. Review of Systems: No CV, GI/, Pulmonary, Eye, ENT system symptoms on review. Mental Status Exam: Oriented to herself and situation. Speech has some latency, coherent. Often response is monosyllabic. Abstraction fair. Computation impaired. Language function intact. Mood and affect withdrawn. Laboratory Data: Reviewed. Impression: Major depressive disorder recurrent. Major neurocognitive disorder, probably early vascular with depression. Expressive aphasia. Plan: Start Exelon patch 4.6 mg a day. The niru of her major neurocognitive disorder is probably a combination of vascular Alzheimers and that is the reason for the Exelon consequent to the Alzheimers, partial etiology. We will also change Celexa at 10 mg a day to Zoloft 25 mg a day for 3 days and 50 mg a day. Maintain Neurontin 100 mg t.i.d. Assessment: Vital Signs/I&O: Vital Signs Date Time Temp Pulse Resp B/P (MAP) Pulse Ox O2 Delivery O2 Flow Rate FiO2 04/10/20 06:36 97.5 56 18 104/64 (77) 97 04/06/20 16:43 Room Air I & O 04/09/20 04/09/20 04/10/20 15:00 23:00 07:00 Intake Total 960 ml 480 ml Balance 960 ml 480 ml Current Medications: Meds: Current Medications Medications (Trade) Dose Ordered Sig/Henri Route PRN Reason Start Time Stop Time Status Last Admin Dose Admin Sertraline HCl (Zoloft) 25 mg DAILY PO 04/09/20 09:00 04/11/20 11:00 04/09/20 08:52 Rivastigmine (Exelon) 1 patch DAILY TD 04/09/20 09:00 04/09/20 08:53 I have reviewed the current psychotropics carefully including drug interactions. Risk benefit ratio favors no change other than as noted in my dictated progress note. Diagnosis: Problems: (1) Impulse control disorder, unspecified (2) Anxiety disorder, unspecified (3) Dementia, vascular, with depression (4) Dementia, vascular, with delusions (5) Dementia in Alzheimer's disease with depression (6) Dementia in Alzheimer's disease with delusions (7) Major neurocognitive disorder, due to vascular disease, with behavioral disturbance, mild JANIA BROOKS MD Apr 10, 2020 06:48
[2020-04-10] MEDS: hydroCHLOROthiazide 12.5 MG CAPSULE PO SCH (07:50)
[2020-04-10] MEDS: CELECOXIB 100 MG CAPSULE PO SCH (07:51)
[2020-04-10] MEDS: GABAPENTIN 100 MG CAPSULE. PO SCH ×3 (07:51→19:42)
[2020-04-10] MEDS: MELOXICAM 15 MG TABLET. PO SCH (07:51)
[2020-04-10] MEDS: FUROSEMIDE 40 MG TABLET PO SCH (07:52)
[2020-04-10] MEDS: RIVASTIGMINE 4.6MG PATCH. TD SCH (07:52)
[2020-04-10] MEDS: CLOPIDOGREL BISULFATE 75 MG TABLET PO SCH (07:52)
[2020-04-10] MEDS: PANTOPRAZOLE 40 MG TABLET. PO SCH (07:52)
[2020-04-10] MEDS: SERTRALINE 25 MG TABLET. PO SCH (07:52)
[2020-04-10 15:57] VITALS: BP 100/59
[2020-04-10] MEDS: SIMVASTATIN 20 MG TABLET PO SCH (19:43)
--- NOTE | 2020-04-10 21:38 | PDOC ---
Exam Note: Ottoniel Note: Please also refer to the separate dictated note~for this date of service dictated separately.~Patient seen individually. Discussed the patient with Nursing staff reviewed the chart.~Reviewed interim history and current functioning. Reviewed vital signs,~Labs/ Radiology~and current medications noted below. Continue current treatment with the changes noted in the dictated addendum note Assessment: Vital Signs/I&O: Vital Signs Date Time Temp Pulse Resp B/P (MAP) Pulse Ox O2 Delivery O2 Flow Rate FiO2 04/10/20 18:19 98.1 04/10/20 15:57 67 18 100/59 (73) 94 04/06/20 16:43 Room Air I & O 04/09/20 04/09/20 04/10/20 15:00 23:00 07:00 Intake Total 960 ml 480 ml Balance 960 ml 480 ml Current Medications: I have reviewed the current psychotropics carefully including drug interactions. Risk benefit ratio favors no change other than as noted in my dictated progress note. Diagnosis: Problems: (1) Impulse control disorder, unspecified (2) Anxiety disorder, unspecified (3) Dementia, vascular, with depression (4) Dementia, vascular, with delusions (5) Dementia in Alzheimer's disease with depression (6) Dementia in Alzheimer's disease with delusions (7) Major neurocognitive disorder, due to vascular disease, with behavioral disturbance, mild JANIA BROOKS MD Apr 10, 2020 21:38
[2020-04-11 06:09] VITALS: BP 118/76
[2020-04-11 06:37] LABS: BASO % 1 % (0-3); EOS # 0.2 x10^3/uL (0.0-0.7); EOS % 4 % (0-3); HEMATOCRIT 42.4 % (36.0-47.0); HEMOGLOBIN 14.1 g/dL (12.0-15.5); LYMPH # 1.6 x10^3/uL (1.0-4.8); LYMPH % 34 % (24-48); MEAN CORPUSCULAR HEMOGLOBIN 31 pg (25-35); MEAN CORPUSCULAR HGB CONC 33 g/dL (31-37); MEAN CORPUSCULAR VOLUME 94 fL (79-100); MONO # 0.5 x10^3/uL (0.0-1.1); MONO % 10 % (0-9); NEUT # 2.5 x10^3uL (1.8-7.7); NEUT % 52 % (31-73); PLATELET COUNT 265 x10^3/uL (140-400); RED BLOOD COUNT 4.52 x10^6/uL (3.50-5.40); RED CELL DISTRIBUTION WIDTH 13.2 % (11.5-14.5); WHITE BLOOD COUNT 4.9 x10^3/uL (4.0-11.0)
[2020-04-11 06:52] LABS: ALBUMIN 3.6 g/dL (3.4-5.0); CREATININE 0.8 mg/dL (0.6-1.0); GFR 70.9; POTASSIUM 3.7 mmol/L (3.5-5.1); TOTAL BILIRUBIN 0.5 mg/dL (0.2-1.0); TOTAL PROTEIN 7.3 g/dL (6.4-8.2)
--- NOTE | 2020-04-11 07:17 | PDOC ---
Exam Note: Ottoniel Note: This note is a late entry for 04/09/2020 covers elements not covered in my initial note. Subjective: The patient was seen face to face with the treatment team in the morning of 04/09/2020 including Sapna Monroy, and Daja (medical social consultant), Joleen, Activity Therapy. Nursing report was with Asya JACQUES. Discussed the patients progress, diagnoses, psychosocial history, current psychotropics, discharge plans, current behaviors, sleep and appetite intake and social interactions. She was living at [facility] in [facility]. She was initially appointed a temporary guardianship due to a confusion and the fact that she could not figure out how to use a microwave oven and other det eriorations. Later this was changed to a permanent guardianship. CT head shows small vessel ischemic disease. No acute changes. No CVA. She has no apparent psychosocial support system. She has 1 of 10 children, most of whom and she was not close to her siblings. Her one daughter as well. At times she has been talking about people being killed at the place she was living at, appears psychotic and has talked about her first bothering her somewhat disorganized. Review of Systems: No CV, GI/, Pulmonary, Eye, ENT system symptoms on review. Mental Status Exam: Oriented to herself but difficult to assess due to expressive aphasia. Abstraction fair. Computation impaired. Language function intact. Memory is impaired. Mood and affect dysphoric, anxious, somewhat paranoid, delusional. Laboratory Data: Reviewed. Impression: Major depressive disorder recurrent. Major neurocognitive disorder, probably early vascular with delusions, depression and behavioral disturbance. Expressive aphasia. Rest as above. Plan: Continue psychotropics from initial note. We have started Zoloft increasing to 50 mg a day. Maintain gabapentin at current dosage, Exelon patch started 4.6 mg a day. If clear psychotic symptoms are evident, we will add low dose Seroquel. Assessment: Vital Signs/I&O: Vital Signs Date Time Temp Pulse Resp B/P (MAP) Pulse Ox O2 Delivery O2 Flow Rate FiO2 04/11/20 06:09 98.1 57 18 118/76 (90) 96 04/06/20 16:43 Room Air I & O 04/10/20 04/10/20 04/11/20 15:00 23:00 07:00 Intake Total 960 ml 580 ml Balance 960 ml 580 ml Labs: Laboratory Tests Test 04/11/20 06:00 White Blood Count 4.9 x10^3/uL (4.0-11.0) Red Blood Count 4.52 x10^6/uL (3.50-5.40) Hemoglobin 14.1 g/dL (12.0-15.5) Hematocrit 42.4 % (36.0-47.0) Mean Corpuscular Volume 94 fL (79-100) Mean Corpuscular Hemoglobin 31 pg (25-35) Mean Corpuscular Hemoglobin Concent 33 g/dL (31-37) Red Cell Distribution Width 13.2 % (11.5-14.5) Platelet Count 265 x10^3/uL (140-400) Neutrophils (%) (Auto) 52 % (31-73) Lymphocytes (%) (Auto) 34 % (24-48) Monocytes (%) (Auto) 10 % (0-9) H Eosinophils (%) (Auto) 4 % (0-3) H Basophils (%) (Auto) 1 % (0-3) Neutrophils # (Auto) 2.5 x10^3uL (1.8-7.7) Lymphocytes # (Auto) 1.6 x10^3/uL (1.0-4.8) Monocytes # (Auto) 0.5 x10^3/uL (0.0-1.1) Eosinophils # (Auto) 0.2 x10^3/uL (0.0-0.7) Basophils # (Auto) 0.0 x10^3/uL (0.0-0.2) Sodium Level 141 mmol/L (136-145) Potassium Level 3.7 mmol/L (3.5-5.1) Chloride Level 103 mmol/L (98-107) Carbon Dioxide Level 30 mmol/L (21-32) Anion Gap 8 (6-14) Blood Urea Nitrogen 23 mg/dL (7-20) H Creatinine 0.8 mg/dL (0.6-1.0) Estimated GFR (Cockcroft-Gault) 70.9 BUN/Creatinine Ratio 29 (6-20) H Glucose Level 101 mg/dL (70-99) H Calcium Level 9.0 mg/dL (8.5-10.1) Total Bilirubin 0.5 mg/dL (0.2-1.0) Aspartate Amino Transferase (AST) 15 U/L (15-37) Alanine Aminotransferase (ALT) 20 U/L (14-59) Alkaline Phosphatase 118 U/L (46-116) H Total Protein 7.3 g/dL (6.4-8.2) Albumin 3.6 g/dL (3.4-5.0) Albumin/Globulin Ratio 1.0 (1.0-1.7) Current Medications: I have reviewed the current psychotropics carefully including drug interactions. Risk benefit ratio favors no change other than as noted in my dictated progress note. Diagnosis: Problems: (1) Impulse control disorder, unspecified (2) Anxiety disorder, unspecified (3) Dementia, vascular, with depression (4) Dementia, vascular, with delusions (5) Dementia in Alzheimer's disease with depression (6) Dementia in Alzheimer's disease with delusions (7) Major neurocognitive disorder, due to vascular disease, with behavioral disturbance, mild JANIA BROOKS MD Apr 11, 2020 07:17
[2020-04-11] MEDS: MELOXICAM 15 MG TABLET. PO SCH (07:53)
[2020-04-11] MEDS: hydroCHLOROthiazide 12.5 MG CAPSULE PO SCH (07:53)
[2020-04-11] MEDS: SERTRALINE 25 MG TABLET. PO SCH (07:53)
[2020-04-11] MEDS: FUROSEMIDE 40 MG TABLET PO SCH (07:54)
[2020-04-11] MEDS: CLOPIDOGREL BISULFATE 75 MG TABLET PO SCH (07:54)
[2020-04-11] MEDS: CELECOXIB 100 MG CAPSULE PO SCH (07:54)
[2020-04-11] MEDS: PANTOPRAZOLE 40 MG TABLET. PO SCH (07:54)
[2020-04-11] MEDS: GABAPENTIN 100 MG CAPSULE. PO SCH ×3 (07:54→20:09)
[2020-04-11] MEDS: RIVASTIGMINE 4.6MG PATCH. TD SCH (07:58)
[2020-04-11 16:18] VITALS: BP 137/81
[2020-04-11] MEDS: SIMVASTATIN 20 MG TABLET PO SCH (20:09)
--- NOTE | 2020-04-11 22:07 | PDOC ---
Exam Note: Ottoniel Note: This note is a late entry for 04/10/2020 covers elements not covered in my initial note. Subjective: The patient was seen face to face in the evening of 04/10/2020. Nursing report was with Nathan JACQUES. She slept 7-3/4 hours previous night. She has been calm, cooperative, stayed in her bed at night, less restless. Review of Systems: No CV, GI/, Pulmonary, Eye, ENT system symptoms on review. Mental Status Exam: Oriented to herself. At times patient remains more confused, but as I met with her at some length evening of 04/10/2020, she was able to comprehend much better than she can express and she was able to accept this discrepancy as we addressed this individually. Abstraction fair. Computation impaired. Language function intact. Memory is impaired. Mood and affect dysphoric, anxious, somewhat paranoid, delusional. Laboratory Data: Reviewed. Impression: Major depressive disorder recurrent. Major neurocognitive disorder, probably early vascular with delusions, depression and behavioral disturbance. Expressive aphasia. Rest as above. Plan: Continue psychotropics from initial note. Increase Exelon patch to 9.5 mg a day after she has been on 4.6 mg for 5 days. Assessment: Vital Signs/I&O: Vital Signs Date Time Temp Pulse Resp B/P (MAP) Pulse Ox O2 Delivery O2 Flow Rate FiO2 04/11/20 20:21 97.9 95 04/11/20 16:18 78 18 137/81 (99) 04/06/20 16:43 Room Air I & O 04/10/20 04/10/20 04/11/20 15:00 23:00 07:00 Intake Total 960 ml 580 ml Balance 960 ml 580 ml Labs: Laboratory Tests Test 04/11/20 06:00 White Blood Count 4.9 x10^3/uL (4.0-11.0) Red Blood Count 4.52 x10^6/uL (3.50-5.40) Hemoglobin 14.1 g/dL (12.0-15.5) Hematocrit 42.4 % (36.0-47.0) Mean Corpuscular Volume 94 fL (79-100) Mean Corpuscular Hemoglobin 31 pg (25-35) Mean Corpuscular Hemoglobin Concent 33 g/dL (31-37) Red Cell Distribution Width 13.2 % (11.5-14.5) Platelet Count 265 x10^3/uL (140-400) Neutrophils (%) (Auto) 52 % (31-73) Lymphocytes (%) (Auto) 34 % (24-48) Monocytes (%) (Auto) 10 % (0-9) H Eosinophils (%) (Auto) 4 % (0-3) H Basophils (%) (Auto) 1 % (0-3) Neutrophils # (Auto) 2.5 x10^3uL (1.8-7.7) Lymphocytes # (Auto) 1.6 x10^3/uL (1.0-4.8) Monocytes # (Auto) 0.5 x10^3/uL (0.0-1.1) Eosinophils # (Auto) 0.2 x10^3/uL (0.0-0.7) Basophils # (Auto) 0.0 x10^3/uL (0.0-0.2) Sodium Level 141 mmol/L (136-145) Potassium Level 3.7 mmol/L (3.5-5.1) Chloride Level 103 mmol/L (98-107) Carbon Dioxide Level 30 mmol/L (21-32) Anion Gap 8 (6-14) Blood Urea Nitrogen 23 mg/dL (7-20) H Creatinine 0.8 mg/dL (0.6-1.0) Estimated GFR (Cockcroft-Gault) 70.9 BUN/Creatinine Ratio 29 (6-20) H Glucose Level 101 mg/dL (70-99) H Calcium Level 9.0 mg/dL (8.5-10.1) Total Bilirubin 0.5 mg/dL (0.2-1.0) Aspartate Amino Transferase (AST) 15 U/L (15-37) Alanine Aminotransferase (ALT) 20 U/L (14-59) Alkaline Phosphatase 118 U/L (46-116) H Total Protein 7.3 g/dL (6.4-8.2) Albumin 3.6 g/dL (3.4-5.0) Albumin/Globulin Ratio 1.0 (1.0-1.7) Current Medications: I have reviewed the current psychotropics carefully including drug interactions. Risk benefit ratio favors no change other than as noted in my dictated progress note. Diagnosis: Problems: (1) Impulse control disorder, unspecified (2) Anxiety disorder, unspecified (3) Dementia, vascular, with depression (4) Dementia, vascular, with delusions (5) Dementia in Alzheimer's disease with depression (6) Dementia in Alzheimer's disease with delusions (7) Major neurocognitive disorder, due to vascular disease, with behavioral disturbance, mild JANIA BROOKS MD Apr 11, 2020 22:07
--- NOTE | 2020-04-11 22:08 | PDOC ---
Exam Note: Ottoniel Note: Please also refer to the separate dictated note~for this date of service dictated separately.~Patient seen individually. Discussed the patient with Nursing staff reviewed the chart.~Reviewed interim history and current functioning. Reviewed vital signs,~Labs/ Radiology~and current medications noted below. Continue current treatment with the changes noted in the dictated addendum note Assessment: Vital Signs/I&O: Vital Signs Date Time Temp Pulse Resp B/P (MAP) Pulse Ox O2 Delivery O2 Flow Rate FiO2 04/11/20 20:21 97.9 95 04/11/20 16:18 78 18 137/81 (99) 04/06/20 16:43 Room Air I & O 04/10/20 04/10/20 04/11/20 15:00 23:00 07:00 Intake Total 960 ml 580 ml Balance 960 ml 580 ml Labs: Laboratory Tests Test 04/11/20 06:00 White Blood Count 4.9 x10^3/uL (4.0-11.0) Red Blood Count 4.52 x10^6/uL (3.50-5.40) Hemoglobin 14.1 g/dL (12.0-15.5) Hematocrit 42.4 % (36.0-47.0) Mean Corpuscular Volume 94 fL (79-100) Mean Corpuscular Hemoglobin 31 pg (25-35) Mean Corpuscular Hemoglobin Concent 33 g/dL (31-37) Red Cell Distribution Width 13.2 % (11.5-14.5) Platelet Count 265 x10^3/uL (140-400) Neutrophils (%) (Auto) 52 % (31-73) Lymphocytes (%) (Auto) 34 % (24-48) Monocytes (%) (Auto) 10 % (0-9) H Eosinophils (%) (Auto) 4 % (0-3) H Basophils (%) (Auto) 1 % (0-3) Neutrophils # (Auto) 2.5 x10^3uL (1.8-7.7) Lymphocytes # (Auto) 1.6 x10^3/uL (1.0-4.8) Monocytes # (Auto) 0.5 x10^3/uL (0.0-1.1) Eosinophils # (Auto) 0.2 x10^3/uL (0.0-0.7) Basophils # (Auto) 0.0 x10^3/uL (0.0-0.2) Sodium Level 141 mmol/L (136-145) Potassium Level 3.7 mmol/L (3.5-5.1) Chloride Level 103 mmol/L (98-107) Carbon Dioxide Level 30 mmol/L (21-32) Anion Gap 8 (6-14) Blood Urea Nitrogen 23 mg/dL (7-20) H Creatinine 0.8 mg/dL (0.6-1.0) Estimated GFR (Cockcroft-Gault) 70.9 BUN/Creatinine Ratio 29 (6-20) H Glucose Level 101 mg/dL (70-99) H Calcium Level 9.0 mg/dL (8.5-10.1) Total Bilirubin 0.5 mg/dL (0.2-1.0) Aspartate Amino Transferase (AST) 15 U/L (15-37) Alanine Aminotransferase (ALT) 20 U/L (14-59) Alkaline Phosphatase 118 U/L (46-116) H Total Protein 7.3 g/dL (6.4-8.2) Albumin 3.6 g/dL (3.4-5.0) Albumin/Globulin Ratio 1.0 (1.0-1.7) Current Medications: I have reviewed the current psychotropics carefully including drug interactions. Risk benefit ratio favors no change other than as noted in my dictated progress note. Diagnosis: Problems: (1) Impulse control disorder, unspecified (2) Anxiety disorder, unspecified (3) Dementia, vascular, with depression (4) Dementia, vascular, with delusions (5) Dementia in Alzheimer's disease with depression (6) Dementia in Alzheimer's disease with delusions (7) Major neurocognitive disorder, due to vascular disease, with behavioral disturbance, mild JANIA BROOKS MD Apr 11, 2020 22:08
[2020-04-12 06:12] VITALS: BP 146/83
[2020-04-12] MEDS: GABAPENTIN 100 MG CAPSULE. PO SCH ×3 (08:27→20:43)
[2020-04-12] MEDS: MELOXICAM 15 MG TABLET. PO SCH (08:27)
[2020-04-12] MEDS: SERTRALINE 50 MG TABLET. PO SCH (08:27)
[2020-04-12] MEDS: FUROSEMIDE 40 MG TABLET PO SCH (08:27)
[2020-04-12] MEDS: hydroCHLOROthiazide 12.5 MG CAPSULE PO SCH (08:27)
[2020-04-12] MEDS: PANTOPRAZOLE 40 MG TABLET. PO SCH (08:27)
[2020-04-12] MEDS: CELECOXIB 100 MG CAPSULE PO SCH (08:27)
[2020-04-12] MEDS: CLOPIDOGREL BISULFATE 75 MG TABLET PO SCH (08:28)
[2020-04-12] MEDS: RIVASTIGMINE 4.6MG PATCH. TD SCH (08:28)
[2020-04-12 15:51] VITALS: BP 126/77
[2020-04-12] MEDS: SIMVASTATIN 20 MG TABLET PO SCH (20:43)
--- NOTE | 2020-04-12 22:02 | PDOC ---
Exam Note: Ottoniel Note: Please also refer to the separate dictated note~for this date of service dictated separately.~Patient seen individually. Discussed the patient with Nursing staff reviewed the chart.~Reviewed interim history and current functioning. Reviewed vital signs,~Labs/ Radiology~and current medications noted below. Continue current treatment with the changes noted in the dictated addendum note Assessment: Vital Signs/I&O: Vital Signs Date Time Temp Pulse Resp B/P (MAP) Pulse Ox O2 Delivery O2 Flow Rate FiO2 04/12/20 21:56 98.7 04/12/20 15:51 66 126/77 (93) 97 04/12/20 06:12 20 04/06/20 16:43 Room Air I & O 04/11/20 04/11/20 04/12/20 15:00 23:00 07:00 Intake Total 480 ml 720 ml Balance 480 ml 720 ml Current Medications: Meds: Current Medications Medications (Trade) Dose Ordered Sig/Henri Route PRN Reason Start Time Stop Time Status Last Admin Dose Admin Sertraline HCl (Zoloft) 50 mg DAILY PO 04/12/20 09:00 04/12/20 08:27 I have reviewed the current psychotropics carefully including drug interactions. Risk benefit ratio favors no change other than as noted in my dictated progress note. Diagnosis: Problems: (1) Impulse control disorder, unspecified (2) Anxiety disorder, unspecified (3) Dementia, vascular, with depression (4) Dementia, vascular, with delusions (5) Dementia in Alzheimer's disease with depression (6) Dementia in Alzheimer's disease with delusions (7) Major neurocognitive disorder, due to vascular disease, with behavioral disturbance, mild JANIA BROOKS MD Apr 12, 2020 22:02
[2020-04-13 06:32] LABS: BASO % 1 % (0-3); EOS # 0.2 x10^3/uL (0.0-0.7); EOS % 4 % (0-3); HEMATOCRIT 41.3 % (36.0-47.0); LYMPH # 1.8 x10^3/uL (1.0-4.8); LYMPH % 36 % (24-48); MEAN CORPUSCULAR HEMOGLOBIN 32 pg (25-35); MEAN CORPUSCULAR HGB CONC 34 g/dL (31-37); MEAN CORPUSCULAR VOLUME 93 fL (79-100); MONO # 0.4 x10^3/uL (0.0-1.1); MONO % 9 % (0-9); NEUT # 2.6 x10^3uL (1.8-7.7); NEUT % 51 % (31-73); PLATELET COUNT 256 x10^3/uL (140-400); RED BLOOD COUNT 4.45 x10^6/uL (3.50-5.40); RED CELL DISTRIBUTION WIDTH 13.5 % (11.5-14.5); WHITE BLOOD COUNT 5.1 x10^3/uL (4.0-11.0)
[2020-04-13 06:36] VITALS: BP 106/68
[2020-04-13 06:51] LABS: ALBUMIN 3.7 g/dL (3.4-5.0); CALCIUM 9.1 mg/dL (8.5-10.1); CREATININE 0.9 mg/dL (0.6-1.0); GFR 61.9; TOTAL BILIRUBIN 0.6 mg/dL (0.2-1.0); TOTAL PROTEIN 7.4 g/dL (6.4-8.2)
--- NOTE | 2020-04-13 07:37 | PDOC ---
Exam Note: Ottoniel Note: This note is a late entry for 04/11/2020 covers elements not covered in my initial note. Subjective: The patient was seen face to face in the evening of 04/11/2020. Nursing report was with Nathan JACQUES. She slept 7 hours previous night. She is somewhat withdrawn, little more oriented. She seems on the surface due to expressive aphasia. No disruptive behaviors. Review of Systems: No CV, , pulmonary, eye, ENT system symptoms on review. Mental Status Exam: Oriented to herself, at times situation. Speech moderate latency. Often response is monosyllabic. Abstraction fair. Computation impaired. Language function intact. Memory is impaired. No suicidal or homicidal ideation. Laboratory Data: Reviewed. Impression: Major depressive disorder recurrent. Major neurocognitive disorder, Alzheimer vascular with delusions, depression and behavioral disturbance. Expressive aphasia. Rest as above. Plan: Continue psychotropics from initial note. Assessment: Vital Signs/I&O: Vital Signs Date Time Temp Pulse Resp B/P (MAP) Pulse Ox O2 Delivery O2 Flow Rate FiO2 04/13/20 06:36 97.7 70 18 106/68 (81) 97 I & O 04/12/20 04/12/20 04/13/20 15:00 23:00 07:00 Intake Total 600 ml 480 ml Balance 600 ml 480 ml Labs: Laboratory Tests Test 04/13/20 06:24 White Blood Count 5.1 x10^3/uL (4.0-11.0) Red Blood Count 4.45 x10^6/uL (3.50-5.40) Hemoglobin 14.0 g/dL (12.0-15.5) Hematocrit 41.3 % (36.0-47.0) Mean Corpuscular Volume 93 fL (79-100) Mean Corpuscular Hemoglobin 32 pg (25-35) Mean Corpuscular Hemoglobin Concent 34 g/dL (31-37) Red Cell Distribution Width 13.5 % (11.5-14.5) Platelet Count 256 x10^3/uL (140-400) Neutrophils (%) (Auto) 51 % (31-73) Lymphocytes (%) (Auto) 36 % (24-48) Monocytes (%) (Auto) 9 % (0-9) Eosinophils (%) (Auto) 4 % (0-3) H Basophils (%) (Auto) 1 % (0-3) Neutrophils # (Auto) 2.6 x10^3uL (1.8-7.7) Lymphocytes # (Auto) 1.8 x10^3/uL (1.0-4.8) Monocytes # (Auto) 0.4 x10^3/uL (0.0-1.1) Eosinophils # (Auto) 0.2 x10^3/uL (0.0-0.7) Basophils # (Auto) 0.0 x10^3/uL (0.0-0.2) Sodium Level 141 mmol/L (136-145) Potassium Level 4.0 mmol/L (3.5-5.1) Chloride Level 102 mmol/L (98-107) Carbon Dioxide Level 30 mmol/L (21-32) Anion Gap 9 (6-14) Blood Urea Nitrogen 23 mg/dL (7-20) H Creatinine 0.9 mg/dL (0.6-1.0) Estimated GFR (Cockcroft-Gault) 61.9 BUN/Creatinine Ratio 26 (6-20) H Glucose Level 105 mg/dL (70-99) H Calcium Level 9.1 mg/dL (8.5-10.1) Total Bilirubin 0.6 mg/dL (0.2-1.0) Aspartate Amino Transferase (AST) 17 U/L (15-37) Alanine Aminotransferase (ALT) 22 U/L (14-59) Alkaline Phosphatase 127 U/L (46-116) H Total Protein 7.4 g/dL (6.4-8.2) Albumin 3.7 g/dL (3.4-5.0) Albumin/Globulin Ratio 1.0 (1.0-1.7) Current Medications: Meds: Current Medications Medications (Trade) Dose Ordered Sig/Henri Route PRN Reason Start Time Stop Time Status Last Admin Dose Admin Sertraline HCl (Zoloft) 50 mg DAILY PO 04/12/20 09:00 04/12/20 08:27 I have reviewed the current psychotropics carefully including drug interactions. Risk benefit ratio favors no change other than as noted in my dictated progress note. Diagnosis: Problems: (1) Impulse control disorder, unspecified (2) Anxiety disorder, unspecified (3) Dementia, vascular, with depression (4) Dementia, vascular, with delusions (5) Dementia in Alzheimer's disease with depression (6) Dementia in Alzheimer's disease with delusions (7) Major neurocognitive disorder, due to vascular disease, with behavioral d isturbjian, JANIA Clark MD Apr 13, 2020 07:37
--- NOTE | 2020-04-13 07:55 | PDOC ---
Exam Note: Ottoniel Note: This note is a late entry for 04/12/2020 covers elements not covered in my initial note. Subjective: The patient was seen face to face in the evening of 04/12/2020. Nursing report was with Asya JACQUES. She slept 7 hours previous night. She has been calm, cooperative, somewhat withdrawn. I met with her in her room. Review of Systems: No CV, , pulmonary, eye, ENT system symptoms on review. Mental Status Exam: Oriented to herself and situation. Speech moderate latency. Abstraction fair. Computation impaired. Language function intact. Memory is impaired. Mood and affect withdrawn, delusional. Laboratory Data: Reviewed. Impression: Major depressive disorder recurrent. Major neurocognitive disorder, probably early vascular with delusions, depression and behavioral disturbance. Expressive aphasia. Rest as above. Plan: Continue psychotropics from initial note. Assessment: Vital Signs/I&O: Vital Signs Date Time Temp Pulse Resp B/P (MAP) Pulse Ox O2 Delivery O2 Flow Rate FiO2 04/13/20 06:36 97.7 70 18 106/68 (81) 97 I & O 04/12/20 04/12/20 04/13/20 15:00 23:00 07:00 Intake Total 600 ml 480 ml Balance 600 ml 480 ml Labs: Laboratory Tests Test 04/13/20 06:24 White Blood Count 5.1 x10^3/uL (4.0-11.0) Red Blood Count 4.45 x10^6/uL (3.50-5.40) Hemoglobin 14.0 g/dL (12.0-15.5) Hematocrit 41.3 % (36.0-47.0) Mean Corpuscular Volume 93 fL (79-100) Mean Corpuscular Hemoglobin 32 pg (25-35) Mean Corpuscular Hemoglobin Concent 34 g/dL (31-37) Red Cell Distribution Width 13.5 % (11.5-14.5) Platelet Count 256 x10^3/uL (140-400) Neutrophils (%) (Auto) 51 % (31-73) Lymphocytes (%) (Auto) 36 % (24-48) Monocytes (%) (Auto) 9 % (0-9) Eosinophils (%) (Auto) 4 % (0-3) H Basophils (%) (Auto) 1 % (0-3) Neutrophils # (Auto) 2.6 x10^3uL (1.8-7.7) Lymphocytes # (Auto) 1.8 x10^3/uL (1.0-4.8) Monocytes # (Auto) 0.4 x10^3/uL (0.0-1.1) Eosinophils # (Auto) 0.2 x10^3/uL (0.0-0.7) Basophils # (Auto) 0.0 x10^3/uL (0.0-0.2) Sodium Level 141 mmol/L (136-145) Potassium Level 4.0 mmol/L (3.5-5.1) Chloride Level 102 mmol/L (98-107) Carbon Dioxide Level 30 mmol/L (21-32) Anion Gap 9 (6-14) Blood Urea Nitrogen 23 mg/dL (7-20) H Creatinine 0.9 mg/dL (0.6-1.0) Estimated GFR (Cockcroft-Gault) 61.9 BUN/Creatinine Ratio 26 (6-20) H Glucose Level 105 mg/dL (70-99) H Calcium Level 9.1 mg/dL (8.5-10.1) Total Bilirubin 0.6 mg/dL (0.2-1.0) Aspartate Amino Transferase (AST) 17 U/L (15-37) Alanine Aminotransferase (ALT) 22 U/L (14-59) Alkaline Phosphatase 127 U/L (46-116) H Total Protein 7.4 g/dL (6.4-8.2) Albumin 3.7 g/dL (3.4-5.0) Albumin/Globulin Ratio 1.0 (1.0-1.7) Current Medications: Meds: Current Medications Medications (Trade) Dose Ordered Sig/Henri Route PRN Reason Start Time Stop Time Status Last Admin Dose Admin Sertraline HCl (Zoloft) 50 mg DAILY PO 04/12/20 09:00 04/12/20 08:27 I have reviewed the current psychotropics carefully including drug interactions. Risk benefit ratio favors no change other than as noted in my dictated progress note. Diagnosis: Problems: (1) Impulse control disorder, unspecified (2) Anxiety disorder, unspecified (3) Dementia, vascular, with depression (4) Dementia, vascular, with delusions (5) Dementia in Alzheimer's disease with depression (6) Dementia in Alzheimer's disease with delusions (7) Major neurocognitive disorder, due to vascular disease, with behavioral disturbance, mild JANIA BROOKS MD Apr 13, 2020 07:55
[2020-04-13] MEDS: hydroCHLOROthiazide 12.5 MG CAPSULE PO SCH ×2 (08:16→08:19)
[2020-04-13] MEDS: PANTOPRAZOLE 40 MG TABLET. PO SCH (08:16)
[2020-04-13] MEDS: RIVASTIGMINE 4.6MG PATCH. TD SCH (08:16)
[2020-04-13] MEDS: CELECOXIB 100 MG CAPSULE PO SCH (08:16)
[2020-04-13] MEDS: GABAPENTIN 100 MG CAPSULE. PO SCH ×3 (08:16→19:58)
[2020-04-13] MEDS: SERTRALINE 50 MG TABLET. PO SCH (08:16)
[2020-04-13] MEDS: FUROSEMIDE 40 MG TABLET PO SCH ×2 (08:16→08:19)
[2020-04-13] MEDS: CLOPIDOGREL BISULFATE 75 MG TABLET PO SCH (08:17)
--- NOTE | 2020-04-13 15:04 | PN ---
DATE: 04/13/2020 SUBJECTIVE: The patient was seen today at the nursing staff's request as they noted her right upper extremity is more swollen than the left. Patient herself denied any pain. She does have a history of breast cancer but the breast was on the left side. PHYSICAL EXAMINATION: GENERAL: On examining her, she looked well and was clearly in no apparent respiratory distress. No pallor, jaundice, cyanosis or thyromegaly. No jugular venous distention. No lower limb edema. VITAL SIGNS: Her heart rate was 70, blood pressure was 106/68, temperature was 97.7, respiratory rate was 18 and oxygen saturation was 97%. HEAD, EYES, EARS, NOSE AND THROAT: Showed normocephalic, atraumatic. In particular, there is no evidence of any lymphadenopathy in the right side, cervical area or the right axillary area. LABORATORY DATA: Showed that her white cell count was 5000, hemoglobin 14, hematocrit 41, MCV 93, and platelet count 256,000. Her chemistry is also well within normal range. PLAN: My plan is to start with right upper extremity venous Doppler ultrasound to rule out the possibility of deep vein thrombosis and we will decide further management accordingly. CHANCE VILLANUEVA MD DR: SUSANA/lisa JOB#: [id number] / [id number]
--- NOTE | 2020-04-13 16:03 | RAD ---
Right upper extremity venous duplex study 04/13/2020 3:58 PM Clinical History: Reason: right upper extremity is more swollen than her LUE / Spl. Instructions: / History: Technique: Using a combination of real time ultrasound imaging and color-flow and pulse Doppler imaging techniques, including spectral analysis, graded compression and augmentation, duplex evaluation of the deep venous system of the right upper extremity was performed. Multiple images were obtained. Findings: There is no sonographic evidence of deep venous thrombosis involving the visualized deep venous structures of the right upper extremity Impression: No evidence of deep venous thrombosis involving the right upper extremity Electronically signed by: Madhu Lazar MD (04/13/2020 4:01 PM) [id number]
[2020-04-13 16:24] VITALS: BP 118/72
[2020-04-13] MEDS: SIMVASTATIN 20 MG TABLET PO SCH (19:58)
--- NOTE | 2020-04-13 22:13 | PDOC ---
Exam Note: Ottoniel Note: Please also refer to the separate dictated note~for this date of service dictated separately.~Patient seen individually. Discussed the patient with Nursing staff reviewed the chart.~Reviewed interim history and current functioning. Reviewed vital signs,~Labs/ Radiology~and current medications noted below. Continue current treatment with the changes noted in the dictated addendum note Assessment: Vital Signs/I&O: Vital Signs Date Time Temp Pulse Resp B/P (MAP) Pulse Ox O2 Delivery O2 Flow Rate FiO2 04/13/20 22:08 97.6 95 04/13/20 16:24 68 16 118/72 (87) I & O 04/12/20 04/12/20 04/13/20 15:00 23:00 07:00 Intake Total 600 ml 480 ml Balance 600 ml 480 ml Labs: Laboratory Tests Test 04/13/20 06:24 White Blood Count 5.1 x10^3/uL (4.0-11.0) Red Blood Count 4.45 x10^6/uL (3.50-5.40) Hemoglobin 14.0 g/dL (12.0-15.5) Hematocrit 41.3 % (36.0-47.0) Mean Corpuscular Volume 93 fL (79-100) Mean Corpuscular Hemoglobin 32 pg (25-35) Mean Corpuscular Hemoglobin Concent 34 g/dL (31-37) Red Cell Distribution Width 13.5 % (11.5-14.5) Platelet Count 256 x10^3/uL (140-400) Neutrophils (%) (Auto) 51 % (31-73) Lymphocytes (%) (Auto) 36 % (24-48) Monocytes (%) (Auto) 9 % (0-9) Eosinophils (%) (Auto) 4 % (0-3) H Basophils (%) (Auto) 1 % (0-3) Neutrophils # (Auto) 2.6 x10^3uL (1.8-7.7) Lymphocytes # (Auto) 1.8 x10^3/uL (1.0-4.8) Monocytes # (Auto) 0.4 x10^3/uL (0.0-1.1) Eosinophils # (Auto) 0.2 x10^3/uL (0.0-0.7) Basophils # (Auto) 0.0 x10^3/uL (0.0-0.2) Sodium Level 141 mmol/L (136-145) Potassium Level 4.0 mmol/L (3.5-5.1) Chloride Level 102 mmol/L (98-107) Carbon Dioxide Level 30 mmol/L (21-32) Anion Gap 9 (6-14) Blood Urea Nitrogen 23 mg/dL (7-20) H Creatinine 0.9 mg/dL (0.6-1.0) Estimated GFR (Cockcroft-Gault) 61.9 BUN/Creatinine Ratio 26 (6-20) H Glucose Level 105 mg/dL (70-99) H Calcium Level 9.1 mg/dL (8.5-10.1) Total Bilirubin 0.6 mg/dL (0.2-1.0) Aspartate Amino Transferase (AST) 17 U/L (15-37) Alanine Aminotransferase (ALT) 22 U/L (14-59) Alkaline Phosphatase 127 U/L (46-116) H Total Protein 7.4 g/dL (6.4-8.2) Albumin 3.7 g/dL (3.4-5.0) Albumin/Globulin Ratio 1.0 (1.0-1.7) Current Medications: I have reviewed the current psychotropics carefully including drug interactions. Risk benefit ratio favors no change other than as noted in my dictated progress note. Diagnosis: Problems: (1) Impulse control disorder, unspecified (2) Anxiety disorder, unspecified (3) Dementia, vascular, with depression (4) Dementia, vascular, with delusions (5) Dementia in Alzheimer's disease with depression (6) Dementia in Alzheimer's disease with delusions (7) Major neurocognitive disorder, due to vascular disease, with behavioral disturbance, mild JANIA BROOKS MD Apr 13, 2020 22:13
[2020-04-14 06:03] VITALS: BP 121/83
[2020-04-14] MEDS: CLOPIDOGREL BISULFATE 75 MG TABLET PO SCH (08:16)
[2020-04-14] MEDS: SERTRALINE 50 MG TABLET. PO SCH (08:16)
[2020-04-14] MEDS: RIVASTIGMINE 9.5MG PATCH. TD SCH (08:16)
[2020-04-14] MEDS: PANTOPRAZOLE 40 MG TABLET. PO SCH (08:16)
[2020-04-14] MEDS: GABAPENTIN 100 MG CAPSULE. PO SCH ×3 (08:16→20:34)
[2020-04-14] MEDS: CELECOXIB 100 MG CAPSULE PO SCH (08:16)
[2020-04-14] MEDS: FUROSEMIDE 40 MG TABLET PO SCH (08:17)
[2020-04-14] MEDS: hydroCHLOROthiazide 12.5 MG CAPSULE PO SCH (08:17)
[2020-04-14 15:54] VITALS: BP 113/73
[2020-04-14] MEDS: SIMVASTATIN 20 MG TABLET PO SCH (20:34)
--- NOTE | 2020-04-14 21:54 | PDOC ---
Exam Note: Ottoniel Note: Please also refer to the separate dictated note~for this date of service dictated separately.~Patient seen individually. Discussed the patient with Nursing staff reviewed the chart.~Reviewed interim history and current functioning. Reviewed vital signs,~Labs/ Radiology~and current medications noted below. Continue current treatment with the changes noted in the dictated addendum note Assessment: Vital Signs/I&O: Vital Signs Date Time Temp Pulse Resp B/P (MAP) Pulse Ox O2 Delivery O2 Flow Rate FiO2 04/14/20 15:54 97.9 64 17 113/73 (86) 97 Room Air I & O 04/13/20 04/13/20 04/14/20 15:00 23:00 07:00 Intake Total 960 ml 240 ml Balance 960 ml 240 ml Current Medications: Meds: Current Medications Medications (Trade) Dose Ordered Sig/Henri Route PRN Reason Start Time Stop Time Status Last Admin Dose Admin Rivastigmine (Exelon) 1 patch DAILY TD 04/14/20 09:00 04/14/20 08:16 I have reviewed the current psychotropics carefully including drug interactions. Risk benefit ratio favors no change other than as noted in my dictated progress note. Diagnosis: Problems: (1) Impulse control disorder, unspecified (2) Anxiety disorder, unspecified (3) Dementia, vascular, with depression (4) Dementia, vascular, with delusions (5) Dementia in Alzheimer's disease with depression (6) Dementia in Alzheimer's disease with delusions (7) Major neurocognitive disorder, due to vascular disease, with behavioral disturbance, mild JANIA BROOKS MD Apr 14, 2020 21:54
[2020-04-15 06:28] VITALS: BP 116/74
[2020-04-15 06:30] LABS: BASO % 1 % (0-3); EOS # 0.2 x10^3/uL (0.0-0.7); EOS % 5 % (0-3); HEMATOCRIT 39.3 % (36.0-47.0); LYMPH # 1.4 x10^3/uL (1.0-4.8); LYMPH % 35 % (24-48); MEAN CORPUSCULAR HEMOGLOBIN 31 pg (25-35); MEAN CORPUSCULAR HGB CONC 33 g/dL (31-37); MEAN CORPUSCULAR VOLUME 94 fL (79-100); MONO # 0.4 x10^3/uL (0.0-1.1); MONO % 10 % (0-9); NEUT % 49 % (31-73); PLATELET COUNT 232 x10^3/uL (140-400); RED BLOOD COUNT 4.17 x10^6/uL (3.50-5.40); RED CELL DISTRIBUTION WIDTH 13.3 % (11.5-14.5)
[2020-04-15 06:41] LABS: ALBUMIN 3.4 g/dL (3.4-5.0); CREATININE 0.8 mg/dL (0.6-1.0); GFR 70.9; POTASSIUM 3.8 mmol/L (3.5-5.1); TOTAL BILIRUBIN 0.5 mg/dL (0.2-1.0); TOTAL PROTEIN 6.7 g/dL (6.4-8.2)
--- NOTE | 2020-04-15 07:35 | PDOC ---
Exam Note: Ottoniel Note: This note is a late entry for 04/13/2020 covers elements not covered in my initial note. Subjective: The patient was seen face to face in the evening of 04/13/2020. Nursing report was with Asya JACQUES. She slept 7-3/4 hours previous night. She slept 10 in the morning. She continues to have some word finding problems. I have reviewed the psychological testing by Dr. Fuentes reflective of neurocognitive disorder unspecified. She has memory deficits and expressive aphasia, word finding problems appears more confused intermittently. Review of Systems: No CV, , pulmonary, eye, ENT system symptoms on review. Mental Status Exam: Oriented to herself and situation. She is having word finding problems but pleasant, verbal, interactive as I met with her in her room. Speech moderate latency. Abstraction fair. Computation impaired. Language function intact. Memory is impaired. Mood and affect withdrawn, delusional. Laboratory Data: Reviewed. Impression: Major depressive disorder recurrent. Major neurocognitive disorder, probably early vascular with delusions, depression and behavioral disturbance. Expressive aphasia. Rest as above. Plan: Continue psychotropics from initial note. Assessment: Vital Signs/I&O: Vital Signs Date Time Temp Pulse Resp B/P (MAP) Pulse Ox O2 Delivery O2 Flow Rate FiO2 04/15/20 06:28 97.6 57 18 116/74 (88) 97 04/14/20 15:54 Room Air I & O 04/14/20 04/14/20 04/15/20 15:00 23:00 07:00 Intake Total 840 ml 240 ml Balance 840 ml 240 ml Labs: Laboratory Tests Test 04/15/20 06:12 White Blood Count 4.0 x10^3/uL (4.0-11.0) Red Blood Count 4.17 x10^6/uL (3.50-5.40) Hemoglobin 13.0 g/dL (12.0-15.5) Hematocrit 39.3 % (36.0-47.0) Mean Corpuscular Volume 94 fL (79-100) Mean Corpuscular Hemoglobin 31 pg (25-35) Mean Corpuscular Hemoglobin Concent 33 g/dL (31-37) Red Cell Distribution Width 13.3 % (11.5-14.5) Platelet Count 232 x10^3/uL (140-400) Neutrophils (%) (Auto) 49 % (31-73) Lymphocytes (%) (Auto) 35 % (24-48) Monocytes (%) (Auto) 10 % (0-9) H Eosinophils (%) (Auto) 5 % (0-3) H Basophils (%) (Auto) 1 % (0-3) Neutrophils # (Auto) 2.0 x10^3uL (1.8-7.7) Lymphocytes # (Auto) 1.4 x10^3/uL (1.0-4.8) Monocytes # (Auto) 0.4 x10^3/uL (0.0-1.1) Eosinophils # (Auto) 0.2 x10^3/uL (0.0-0.7) Basophils # (Auto) 0.0 x10^3/uL (0.0-0.2) Sodium Level 141 mmol/L (136-145) Potassium Level 3.8 mmol/L (3.5-5.1) Chloride Level 104 mmol/L (98-107) Carbon Dioxide Level 30 mmol/L (21-32) Anion Gap 7 (6-14) Blood Urea Nitrogen 21 mg/dL (7-20) H Creatinine 0.8 mg/dL (0.6-1.0) Estimated GFR (Cockcroft-Gault) 70.9 BUN/Creatinine Ratio 26 (6-20) H Glucose Level 104 mg/dL (70-99) H Calcium Level 9.0 mg/dL (8.5-10.1) Total Bilirubin 0.5 mg/dL (0.2-1.0) Aspartate Amino Transferase (AST) 17 U/L (15-37) Alanine Aminotransferase (ALT) 18 U/L (14-59) Alkaline Phosphatase 116 U/L (46-116) Total Protein 6.7 g/dL (6.4-8.2) Albumin 3.4 g/dL (3.4-5.0) Albumin/Globulin Ratio 1.0 (1.0-1.7) Current Medications: Meds: Current Medications Medications (Trade) Dose Ordered Sig/Henri Route PRN Reason Start Time Stop Time Status Last Admin Dose Admin Rivastigmine (Exelon) 1 patch DAILY TD 04/14/20 09:00 04/14/20 08:16 I have reviewed the current psychotropics carefully including drug interactions. Risk benefit ratio favors no change other than as noted in my dictated progress note. Diagnosis: Problems: (1) Impulse control disorder, unspecified (2) Anxiety disorder, unspecified (3) Dementia, vascular, with depression (4) Dementia, vascular, with delusions (5) Dementia in Alzheimer's disease with depression (6) Dementia in Alzheimer's disease with delusions (7) Major neurocognitive disorder, due to vascular disease, with behavioral disturbance, mild JANIA BROOKS MD Apr 15, 2020 07:35
--- NOTE | 2020-04-15 07:51 | PDOC ---
Exam Note: Ottoniel Note: This note is a late entry for 04/14/2020 covers elements not covered in my initial note. Subjective: The patient was seen face to face in the evening of 04/14/2020. Nursing report was with Erika JACQUES. She slept 7-1/2 hours previous night. I met with her at some length individually right after she had finished supper. She was very pleasant, holding a face mask as I was talking to her even though she has not been wearing it prior to this. She was unable to name the object on the wall as I questioned her. This was a map. She did not know the year or who the President was but otherwise was pleasant. Review of Systems: No CV, , pulmonary, eye system symptoms on review. Mental Status Exam: Oriented to herself and situation. Speech moderate latency. Abstraction fair. Computation impaired. Language function intact. Memory is impaired. Mood and affect withdrawn, delusional. Laboratory Data: Reviewed. Impression: Major depressive disorder recurrent. Major neurocognitive disorder, probably early vascular with delusions, depression and behavioral dist urbance. Expressive aphasia. Rest as above. Plan: Continue psychotropics from initial note. She did sleep well previous night. We will adjust her psychotropics Exelon patch has been increased to 9.5 mg a day. Assessment: Vital Signs/I&O: Vital Signs Date Time Temp Pulse Resp B/P (MAP) Pulse Ox O2 Delivery O2 Flow Rate FiO2 04/15/20 06:28 97.6 57 18 116/74 (88) 97 04/14/20 15:54 Room Air I & O 04/14/20 04/14/20 04/15/20 14:59 22:59 06:59 Intake Total 840 ml 240 ml Balance 840 ml 240 ml Labs: Laboratory Tests Test 04/15/20 06:12 White Blood Count 4.0 x10^3/uL (4.0-11.0) Red Blood Count 4.17 x10^6/uL (3.50-5.40) Hemoglobin 13.0 g/dL (12.0-15.5) Hematocrit 39.3 % (36.0-47.0) Mean Corpuscular Volume 94 fL (79-100) Mean Corpuscular Hemoglobin 31 pg (25-35) Mean Corpuscular Hemoglobin Concent 33 g/dL (31-37) Red Cell Distribution Width 13.3 % (11.5-14.5) Platelet Count 232 x10^3/uL (140-400) Neutrophils (%) (Auto) 49 % (31-73) Lymphocytes (%) (Auto) 35 % (24-48) Monocytes (%) (Auto) 10 % (0-9) H Eosinophils (%) (Auto) 5 % (0-3) H Basophils (%) (Auto) 1 % (0-3) Neutrophils # (Auto) 2.0 x10^3uL (1.8-7.7) Lymphocytes # (Auto) 1.4 x10^3/uL (1.0-4.8) Monocytes # (Auto) 0.4 x10^3/uL (0.0-1.1) Eosinophils # (Auto) 0.2 x10^3/uL (0.0-0.7) Basophils # (Auto) 0.0 x10^3/uL (0.0-0.2) Sodium Level 141 mmol/L (136-145) Potassium Level 3.8 mmol/L (3.5-5.1) Chloride Level 104 mmol/L (98-107) Carbon Dioxide Level 30 mmol/L (21-32) Anion Gap 7 (6-14) Blood Urea Nitrogen 21 mg/dL (7-20) H Creatinine 0.8 mg/dL (0.6-1.0) Estimated GFR (Cockcroft-Gault) 70.9 BUN/Creatinine Ratio 26 (6-20) H Glucose Level 104 mg/dL (70-99) H Calcium Level 9.0 mg/dL (8.5-10.1) Total Bilirubin 0.5 mg/dL (0.2-1.0) Aspartate Amino Transferase (AST) 17 U/L (15-37) Alanine Aminotransferase (ALT) 18 U/L (14-59) Alkaline Phosphatase 116 U/L (46-116) Total Protein 6.7 g/dL (6.4-8.2) Albumin 3.4 g/dL (3.4-5.0) Albumin/Globulin Ratio 1.0 (1.0-1.7) Current Medications: Meds: Current Medications Medications (Trade) Dose Ordered Sig/Henri Route PRN Reason Start Time Stop Time Status Last Admin Dose Admin Rivastigmine (Exelon) 1 patch DAILY TD 04/14/20 09:00 04/14/20 08:16 I have reviewed the current psychotropics carefully including drug interactions. Risk benefit ratio favors no change other than as noted in my dictated progress note. Diagnosis: Problems: (1) Impulse control disorder, unspecified (2) Anxiety disorder, unspecified (3) Dementia, vascular, with depression (4) Dementia, vascular, with delusions (5) Dementia in Alzheimer's disease with depression (6) Dementia in Alzheimer's disease with delusions (7) Major neurocognitive disorder, due to vascular disease, with behavioral disturbance, mild JANIA BROOKS MD Apr 15, 2020 07:51
[2020-04-15] MEDS: PANTOPRAZOLE 40 MG TABLET. PO SCH (08:23)
[2020-04-15] MEDS: GABAPENTIN 100 MG CAPSULE. PO SCH ×3 (08:23→20:16)
[2020-04-15] MEDS: FUROSEMIDE 40 MG TABLET PO SCH (08:23)
[2020-04-15] MEDS: CLOPIDOGREL BISULFATE 75 MG TABLET PO SCH (08:23)
[2020-04-15] MEDS: SERTRALINE 50 MG TABLET. PO SCH (08:23)
[2020-04-15] MEDS: RIVASTIGMINE 9.5MG PATCH. TD SCH (08:24)
[2020-04-15] MEDS: CELECOXIB 100 MG CAPSULE PO SCH (08:24)
[2020-04-15] MEDS: hydroCHLOROthiazide 12.5 MG CAPSULE PO SCH (09:00)
[2020-04-15 15:58] VITALS: BP 109/71
[2020-04-15] MEDS: SIMVASTATIN 20 MG TABLET PO SCH (20:16)
[2020-04-16 06:08] VITALS: BP 116/68
--- NOTE | 2020-04-16 06:44 | PDOC ---
Exam Note: Ottoniel Note: This note is a late entry for 04/15/2020 covers elements not covered in my initial note. Subjective: The patient was seen face to face in the evening of 04/15/2020. Nursing report was with Asya JACQUES. She slept 6-3/4 hours previous night. She remains somewhat paranoid, believed that another patient was talking about her. She does have expressive aphasia. Review of Systems: No CV, , pulmonary, eye system symptoms on review. Mental Status Exam: Reasonably oriented. Speech moderate latency. Abstraction fair. Computation impaired. Language function intact. Memory is impaired. Mood and affect withdrawn, delusional. Laboratory Data: Reviewed. Impression: Major depressive disorder recurrent. Major neurocognitive disorder, probably early vascular with delusions, depression and behavioral disturbance. Expressive aphasia. Rest as above. Plan: No change from initial note. Assessment: Vital Signs/I&O: Vital Signs Date Time Temp Pulse Resp B/P (MAP) Pulse Ox O2 Delivery O2 Flow Rate FiO2 04/16/20 06:08 97.6 65 16 116/68 (84) 97 04/15/20 15:58 Room Air I & O 04/15/20 04/15/20 04/16/20 15:00 23:00 07:00 Intake Total 1080 ml 600 ml Balance 1080 ml 600 ml Current Medications: I have reviewed the current psychotropics carefully including drug interactions. Risk benefit ratio favors no change other than as noted in my dictated progress note. Diagnosis: Problems: (1) Impulse control disorder, unspecified (2) Anxiety disorder, unspecified (3) Dementia, vascular, with depression (4) Dementia, vascular, with delusions (5) Dementia in Alzheimer's disease with depression (6) Dementia in Alzheimer's disease with delusions (7) Major neurocognitive disorder, due to vascular disease, with behavioral disturbance, mild JANIA BROOKS MD Apr 16, 2020 06:44
[2020-04-16] MEDS: GABAPENTIN 100 MG CAPSULE. PO SCH ×3 (08:18→20:30)
[2020-04-16] MEDS: CELECOXIB 100 MG CAPSULE PO SCH (08:18)
[2020-04-16] MEDS: SERTRALINE 50 MG TABLET. PO SCH (08:19)
[2020-04-16] MEDS: CLOPIDOGREL BISULFATE 75 MG TABLET PO SCH (08:19)
[2020-04-16] MEDS: hydroCHLOROthiazide 12.5 MG CAPSULE PO SCH (08:19)
[2020-04-16] MEDS: PANTOPRAZOLE 40 MG TABLET. PO SCH (08:19)
[2020-04-16] MEDS: FUROSEMIDE 40 MG TABLET PO SCH (08:19)
[2020-04-16] MEDS: RIVASTIGMINE 9.5MG PATCH. TD SCH (09:00)
--- NOTE | 2020-04-16 14:42 | TX PLAN ---
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 It is a safety concern so Major called APS and Jena was appoineted a guardian recently. Additional Admission Comments: Per intake record, Yoly has trouble articulating her thoughts, difficulty telling you what she wants, poor nutrition, unable to cook meals, answered the door with her shirt off, periods of agitation when she can't express herself fully, went to a Dr. appointment for BP check got disoriented and ended up in o Covid screening tent, and reports she got in a car with a man to go grocery shopping. Problems Active Problems: Aphasia Cognitive impairment Unable to cook for herself Uncertain that she was taking her medications as prescribed Safety concern Little to no family support Inactive Problems: Medication compliant Cooperative with assessments Pt Strengths/Limitations Ability for [place]: Fair Cognitive Functioning/Ability: Fair Communication Skills/Ability: Poor Financial Resources: Fair Insight/Judgement: Poor Intellectual Ability: Fair Physical Health: Fair Social Skills: Fair Stability in Family: Poor Verbal Skills: Poor Discharge Criteria Discharge Criteria: Adequate arrangements @DC, Adequate self-care Preliminary Discharge Plan Preliminary DC Plan: Assisted Living Other Arrangements: [facility] Fall Risk: High Initial D/C Plan Assisted living community for support with homemaking, meal preparation, medication admnsitration, and 24 hour supervision Identified Discharge Needs: F/U with PCP and psychiatrist is available. Currently Utilized Resources Currently Utilized Resources/P: PCP Referrals Community Resources: Psychiatrist Identified Problems/Hx/Goals Objectives/Short-Term Goals Short Term Goals: Medication Stabilization, Monitor Med Effects, Prevent Deterioration Short Term Goals in Patient's: " Trying to see things and go home." Interventions/Frequency Staff Interventions/Frequency&: Nursing to provide routine safety checks, medication administration, and ADL support. Psychiatry 3-5 times per week. SW visits twice weekly. Encouragement to participate in SW and recreational therapy group activities. History Vocational History: Yoly worked as a respiratory therapist. Social: Yoly has enjoyed reading, painting, and going to the [employer]. Education: Yoly states she attended [employer] and graduated 12th grade. She attended training to be a respiratory therapist. Community Follow-up PCP and psychiatry, if available Community Provider/Family Inpu: abhijit Ramirez, will be involved in team meeting on 04/16/2020. Treatment Plan Explained Patient/Special Education Instructor had this treatment plan explained to him/her as indicated by the signature below and has been given the opportunity to ask questions and make suggestions: Date: Patient/Special Education Instructor Signature: Status Update Update WEEKLY NOTE/UPDATE: Yoly is averaging 100% of meal intakes and seven hours of sleep at night. She has been cooperative and complaint with medication administration and nursing assessments. Yoly's cognitive testing was completed on 04/13/20 indicting impairment to the level where she would benefit from an assisted living environment with a higher level of care. SW attempted to reach abhijit for treatment team meeting today and later found out that abhijit had new blue tooth headset which prevented her ability to be involved via phone in team meeting. Updated abhijit after team. Dafneliz was made aware that [facility] will not have an HC/BS apartment for an estimated two months. Abhijit is going to reach out to [facility], and [facility] for bed availability. Abhijit will then let ANG know where she would like referrals faxed to. NATA HAMMOND Apr 16, 2020 14:42
[2020-04-16 16:01] VITALS: BP 138/74
[2020-04-16] MEDS: SIMVASTATIN 20 MG TABLET PO SCH (20:30)
--- NOTE | 2020-04-16 22:05 | PDOC ---
Exam Note: Ottoniel Note: Please also refer to the separate dictated note~for this date of service dictated separately.~Patient seen individually. Discussed the patient with Nursing staff reviewed the chart.~Reviewed interim history and current functioning. Reviewed vital signs,~Labs/ Radiology~and current medications noted below. Continue current treatment with the changes noted in the dictated addendum note Assessment: Vital Signs/I&O: Vital Signs Date Time Temp Pulse Resp B/P (MAP) Pulse Ox O2 Delivery O2 Flow Rate FiO2 04/16/20 16:01 97.6 67 20 138/74 (95) 95 04/15/20 15:58 Room Air I & O 04/15/20 04/15/20 04/16/20 15:00 23:00 07:00 Intake Total 1080 ml 600 ml Balance 1080 ml 600 ml Current Medications: I have reviewed the current psychotropics carefully including drug interactions. Risk benefit ratio favors no change other than as noted in my dictated progress note. Diagnosis: Problems: (1) Impulse control disorder, unspecified (2) Anxiety disorder, unspecified (3) Dementia, vascular, with depression (4) Dementia, vascular, with delusions (5) Dementia in Alzheimer's disease with depression (6) Dementia in Alzheimer's disease with delusions (7) Major neurocognitive disorder, due to vascular disease, with behavioral disturbance, mild JANIA BROOKS MD Apr 16, 2020 22:05
[2020-04-17 05:24] VITALS: BP 108/72
[2020-04-17 07:40] LABS: ALBUMIN 3.5 g/dL (3.4-5.0); CALCIUM 8.9 mg/dL (8.5-10.1); CREATININE 0.9 mg/dL (0.6-1.0); GFR 61.9; POTASSIUM 3.6 mmol/L (3.5-5.1); TOTAL BILIRUBIN 0.5 mg/dL (0.2-1.0)
[2020-04-17 08:00] LABS: BASO % 1 % (0-3); EOS # 0.2 x10^3/uL (0.0-0.7); EOS % 4 % (0-3); HEMATOCRIT 38.8 % (36.0-47.0); HEMOGLOBIN 13.2 g/dL (12.0-15.5); LYMPH # 1.2 x10^3/uL (1.0-4.8); LYMPH % 28 % (24-48); MEAN CORPUSCULAR HEMOGLOBIN 32 pg (25-35); MEAN CORPUSCULAR HGB CONC 34 g/dL (31-37); MEAN CORPUSCULAR VOLUME 93 fL (79-100); MONO # 0.4 x10^3/uL (0.0-1.1); MONO % 9 % (0-9); NEUT # 2.6 x10^3uL (1.8-7.7); NEUT % 59 % (31-73); PLATELET COUNT 246 x10^3/uL (140-400); RED BLOOD COUNT 4.17 x10^6/uL (3.50-5.40); RED CELL DISTRIBUTION WIDTH 13.3 % (11.5-14.5); WHITE BLOOD COUNT 4.4 x10^3/uL (4.0-11.0)
[2020-04-17] MEDS: GABAPENTIN 100 MG CAPSULE. PO SCH ×3 (08:37→20:42)
[2020-04-17] MEDS: PANTOPRAZOLE 40 MG TABLET. PO SCH (08:37)
[2020-04-17] MEDS: CELECOXIB 100 MG CAPSULE PO SCH (08:37)
[2020-04-17] MEDS: RIVASTIGMINE 9.5MG PATCH. TD SCH (08:37)
[2020-04-17] MEDS: CLOPIDOGREL BISULFATE 75 MG TABLET PO SCH (08:37)
[2020-04-17] MEDS: SERTRALINE 50 MG TABLET. PO SCH (08:37)
[2020-04-17] MEDS: hydroCHLOROthiazide 12.5 MG CAPSULE PO SCH (08:37)
[2020-04-17] MEDS: FUROSEMIDE 40 MG TABLET PO SCH (08:37)
[2020-04-17 15:58] VITALS: BP 119/79
[2020-04-17] MEDS: SIMVASTATIN 20 MG TABLET PO SCH (20:42)
--- NOTE | 2020-04-17 21:46 | PDOC ---
Exam Note: Ottoniel Note: Please also refer to the separate dictated note~for this date of service dictated separately.~Patient seen individually. Discussed the patient with Nursing staff reviewed the chart.~Reviewed interim history and current functioning. Reviewed vital signs,~Labs/ Radiology~and current medications noted below. Continue current treatment with the changes noted in the dictated addendum note Assessment: Vital Signs/I&O: Vital Signs Date Time Temp Pulse Resp B/P (MAP) Pulse Ox O2 Delivery O2 Flow Rate FiO2 04/17/20 15:58 97.9 75 20 119/79 (92) 96 04/15/20 15:58 Room Air I & O 04/16/20 04/16/20 04/17/20 15:00 23:00 07:00 Intake Total 1080 ml 480 ml Balance 1080 ml 480 ml Labs: Laboratory Tests Test 04/17/20 06:58 White Blood Count 4.4 x10^3/uL (4.0-11.0) Red Blood Count 4.17 x10^6/uL (3.50-5.40) Hemoglobin 13.2 g/dL (12.0-15.5) Hematocrit 38.8 % (36.0-47.0) Mean Corpuscular Volume 93 fL (79-100) Mean Corpuscular Hemoglobin 32 pg (25-35) Mean Corpuscular Hemoglobin Concent 34 g/dL (31-37) Red Cell Distribution Width 13.3 % (11.5-14.5) Platelet Count 246 x10^3/uL (140-400) Neutrophils (%) (Auto) 59 % (31-73) Lymphocytes (%) (Auto) 28 % (24-48) Monocytes (%) (Auto) 9 % (0-9) Eosinophils (%) (Auto) 4 % (0-3) H Basophils (%) (Auto) 1 % (0-3) Neutrophils # (Auto) 2.6 x10^3uL (1.8-7.7) Lymphocytes # (Auto) 1.2 x10^3/uL (1.0-4.8) Monocytes # (Auto) 0.4 x10^3/uL (0.0-1.1) Eosinophils # (Auto) 0.2 x10^3/uL (0.0-0.7) Basophils # (Auto) 0.0 x10^3/uL (0.0-0.2) Sodium Level 141 mmol/L (136-145) Potassium Level 3.6 mmol/L (3.5-5.1) Chloride Level 104 mmol/L (98-107) Carbon Dioxide Level 30 mmol/L (21-32) Anion Gap 7 (6-14) Blood Urea Nitrogen 18 mg/dL (7-20) Creatinine 0.9 mg/dL (0.6-1.0) Estimated GFR (Cockcroft-Gault) 61.9 BUN/Creatinine Ratio 20 (6-20) Glucose Level 106 mg/dL (70-99) H Calcium Level 8.9 mg/dL (8.5-10.1) Total Bilirubin 0.5 mg/dL (0.2-1.0) Aspartate Amino Transferase (AST) 18 U/L (15-37) Alanine Aminotransferase (ALT) 21 U/L (14-59) Alkaline Phosphatase 126 U/L (46-116) H Total Protein 7.0 g/dL (6.4-8.2) Albumin 3.5 g/dL (3.4-5.0) Albumin/Globulin Ratio 1.0 (1.0-1.7) Current Medications: I have reviewed the current psychotropics carefully including drug interactions. Risk benefit ratio favors no change other than as noted in my dictated progress note. Diagnosis: Problems: (1) Impulse control disorder, unspecified (2) Anxiety disorder, unspecified (3) Dementia, vascular, with depression (4) Dementia, vascular, with delusions (5) Dementia in Alzheimer's disease with depression (6) Dementia in Alzheimer's disease with delusions (7) Major neurocognitive disorder, due to vascular disease, with behavioral disturbance, mild JANIA BROOKS MD Apr 17, 2020 21:46
[2020-04-18 06:01] VITALS: BP 98/63
--- NOTE | 2020-04-18 07:32 | PDOC ---
Exam Note: Ottoniel Note: This note is a late entry for 04/16/2020 covers elements not covered in my initial note. Subjective: The patient was seen face to face in the morning of 04/16/2020 for treatment team meeting with Daja Monroy, and Sapna (social service staff). Ashley the patients guardian was to attend the meeting but she was unavailable. The patient slept 7 hours previous night. Appetite is 100%. Nursing report was with Brittanie RN. We reviewed the patients history, placement options at assisted living at [facility]. Review of Systems: No CV, , pulmonary, eye system symptoms on review. Mental Status Exam: Reasonably oriented. Speech moderate latency. Abstraction fair. Computation impaired. Language function intact. Memory is impaired. Mood and affect withdrawn, delusional. Laboratory Data: Reviewed. Impression: Major depressive disorder recurrent. Major neurocognitive disorder, probably early vascular with delusions, depression and behavioral disturbance. Expressive aphasia. Rest as above. Plan: No change from initial note. Maintain Zoloft, Exelon patch, and she is on gabapentin. The Exelon patch was increased to 9.5 mg on 04/14. We may increase it further in a day or two. Assessment: Vital Signs/I&O: Vital Signs Date Time Temp Pulse Resp B/P (MAP) Pulse Ox O2 Delivery O2 Flow Rate FiO2 04/18/20 06:01 97.6 57 16 98/63 (75) 96 04/15/20 15:58 Room Air I & O 04/17/20 04/17/20 04/18/20 15:00 23:00 07:00 Intake Total 1080 ml 360 ml Balance 1080 ml 360 ml Current Medications: I have reviewed the current psychotropics carefully including drug interactions. Risk benefit ratio favors no change other than as noted in my dictated progress note. Diagnosis: Problems: (1) Impulse control disorder, unspecified (2) Anxiety disorder, unspecified (3) Dementia, vascular, with depression (4) Dementia, vascular, with delusions (5) Dementia in Alzheimer's disease with depression (6) Dementia in Alzheimer's disease with delusions (7) Major neurocognitive disorder, due to vascular disease, with behavioral disturbance, mild JANIA BROOKS MD Apr 18, 2020 07:32
--- NOTE | 2020-04-18 07:33 | PDOC ---
Exam Note: Ottoniel Note: This note is a late entry for 04/17/2020 covers elements not covered in my initial note. Subjective: The patient was seen face to face in the evening of 04/17/2020. Nursing report was with Brittanie JACQUES. She slept 7-1/4 hours previous night. She is doing better, somewhat withdrawn. I met with her in her room. Review of Systems: No CV, , pulmonary, eye system symptoms on review. Mental Status Exam: Reasonably oriented. Speech moderate latency. Abstraction fair. Computation impaired. Language function intact. Memory is impaired. Mood and affect withdrawn, delusional. Laboratory Data: Reviewed. Impression: Major depressive disorder recurrent. Major neurocognitive disorder, probably early vascular with delusions, depression and behavioral disturbance. Expressive aphasia. Rest as above. Plan: No change from initial note. Assessment: Vital Signs/I&O: Vital Signs Date Time Temp Pulse Resp B/P (MAP) Pulse Ox O2 Delivery O2 Flow Rate FiO2 04/18/20 06:01 97.6 57 16 98/63 (75) 96 04/15/20 15:58 Room Air I & O 04/17/20 04/17/20 04/18/20 15:00 23:00 07:00 Intake Total 1080 ml 360 ml Balance 1080 ml 360 ml Current Medications: I have reviewed the current psychotropics carefully including drug interactions. Risk benefit ratio favors no change other than as noted in my dictated progress note. Diagnosis: Problems: (1) Impulse control disorder, unspecified (2) Anxiety disorder, unspecified (3) Dementia, vascular, with depression (4) Dementia, vascular, with delusions (5) Dementia in Alzheimer's disease with depression (6) Dementia in Alzheimer's disease with delusions (7) Major neurocognitive disorder, due to vascular disease, with behavioral disturbance, mild JANIA BROOKS MD Apr 18, 2020 07:33
[2020-04-18] MEDS: CLOPIDOGREL BISULFATE 75 MG TABLET PO SCH (08:57)
[2020-04-18] MEDS: hydroCHLOROthiazide 12.5 MG CAPSULE PO SCH (08:57)
[2020-04-18] MEDS: PANTOPRAZOLE 40 MG TABLET. PO SCH (08:57)
[2020-04-18] MEDS: CELECOXIB 100 MG CAPSULE PO SCH (08:57)
[2020-04-18] MEDS: RIVASTIGMINE 9.5MG PATCH. TD SCH (08:58)
[2020-04-18] MEDS: SERTRALINE 50 MG TABLET. PO SCH (08:58)
[2020-04-18] MEDS: FUROSEMIDE 40 MG TABLET PO SCH (08:58)
[2020-04-18] MEDS: GABAPENTIN 100 MG CAPSULE. PO SCH ×3 (08:59→20:36)
[2020-04-18 15:48] VITALS: BP 121/77
[2020-04-18] MEDS: SIMVASTATIN 20 MG TABLET PO SCH (20:36)
--- NOTE | 2020-04-18 22:07 | PDOC ---
Exam Note: Ottoniel Note: Please also refer to the separate dictated note~for this date of service dictated separately.~Patient seen individually. Discussed the patient with Nursing staff reviewed the chart.~Reviewed interim history and current functioning. Reviewed vital signs,~Labs/ Radiology~and current medications noted below. Continue current treatment with the changes noted in the dictated addendum note Assessment: Vital Signs/I&O: Vital Signs Date Time Temp Pulse Resp B/P (MAP) Pulse Ox O2 Delivery O2 Flow Rate FiO2 04/18/20 15:48 98.5 63 16 121/77 (92) 96 04/15/20 15:58 Room Air I & O 04/17/20 04/17/20 04/18/20 15:00 23:00 07:00 Intake Total 1080 ml 360 ml Balance 1080 ml 360 ml Current Medications: I have reviewed the current psychotropics carefully including drug interactions. Risk benefit ratio favors no change other than as noted in my dictated progress note. Diagnosis: Problems: (1) Impulse control disorder, unspecified (2) Anxiety disorder, unspecified (3) Dementia, vascular, with depression (4) Dementia, vascular, with delusions (5) Dementia in Alzheimer's disease with depression (6) Dementia in Alzheimer's disease with delusions (7) Major neurocognitive disorder, due to vascular disease, with behavioral disturbance, mild JANIA BROOKS MD Apr 18, 2020 22:07
[2020-04-19 05:22] VITALS: BP 108/72
[2020-04-19 06:18] LABS: BASO % 1 % (0-3); EOS # 0.2 x10^3/uL (0.0-0.7); EOS % 4 % (0-3); HEMATOCRIT 37.7 % (36.0-47.0); HEMOGLOBIN 12.9 g/dL (12.0-15.5); LYMPH # 1.4 x10^3/uL (1.0-4.8); LYMPH % 31 % (24-48); MEAN CORPUSCULAR HEMOGLOBIN 32 pg (25-35); MEAN CORPUSCULAR HGB CONC 34 g/dL (31-37); MEAN CORPUSCULAR VOLUME 93 fL (79-100); MONO # 0.5 x10^3/uL (0.0-1.1); MONO % 11 % (0-9); NEUT # 2.5 x10^3uL (1.8-7.7); NEUT % 54 % (31-73); PLATELET COUNT 235 x10^3/uL (140-400); RED BLOOD COUNT 4.07 x10^6/uL (3.50-5.40); RED CELL DISTRIBUTION WIDTH 13.1 % (11.5-14.5); WHITE BLOOD COUNT 4.6 x10^3/uL (4.0-11.0)
[2020-04-19 06:32] LABS: ALBUMIN 3.3 g/dL (3.4-5.0); CALCIUM 8.6 mg/dL (8.5-10.1); CREATININE 0.9 mg/dL (0.6-1.0); GFR 61.9; POTASSIUM 3.3 mmol/L (3.5-5.1); TOTAL BILIRUBIN 0.5 mg/dL (0.2-1.0); TOTAL PROTEIN 6.6 g/dL (6.4-8.2)
--- NOTE | 2020-04-19 07:12 | PN ---
DATE: 04/18/2020 PSYCHIATRIC PROGRESS NOTE This late entry 04/18/2020 covers elements not covered in my initial note. SUBJECTIVE: I met with the patient evening of 04/18/2020. Per GEORGIE Evans, the patient slept 8-1/2 hours previous night. She remains confused, forgetful, but not agitated, aggressive. She was somewhat isolative at night, but more social during groups on 04/18/2020, attended the morning group, was dancing in the afternoon music group with two other patients The patient seemed to remember this as I processed this with her on rounds in the evening in her room. REVIEW OF SYSTEMS: No CV, , pulmonary, eye, ENT system symptoms on review. MENTAL STATUS EXAM: Oriented to herself. Insight improved. Judgment intact to standard questioning. Mood still somewhat dysphoric, anxious, but showing improvement. No clear psychotic symptoms, suicidal or homicidal ideation. Attention span is short. She does seem to have some expressive communication deficits. LABORATORY DATA: Reviewed. IMPRESSION: Unchanged from initial note. PLAN: No change from initial note. JANIA BROOKS MD DR: ED/lisa JOB#: [id number] / [id number]
[2020-04-19] MEDS: CLOPIDOGREL BISULFATE 75 MG TABLET PO SCH (07:58)
[2020-04-19] MEDS: hydroCHLOROthiazide 12.5 MG CAPSULE PO SCH (07:58)
[2020-04-19] MEDS: FUROSEMIDE 40 MG TABLET PO SCH (07:58)
[2020-04-19] MEDS: GABAPENTIN 100 MG CAPSULE. PO SCH ×3 (07:58→21:23)
[2020-04-19] MEDS: SERTRALINE 50 MG TABLET. PO SCH (07:58)
[2020-04-19] MEDS: PANTOPRAZOLE 40 MG TABLET. PO SCH (07:58)
[2020-04-19] MEDS: CELECOXIB 100 MG CAPSULE PO SCH (07:58)
[2020-04-19] MEDS: RIVASTIGMINE 9.5MG PATCH. TD SCH (07:59)
[2020-04-19] MEDS: ACETAMINOPHEN 500 MG TABLET PO PRN (08:05)
[2020-04-19 15:30] VITALS: BP 119/78
[2020-04-19] MEDS: SIMVASTATIN 20 MG TABLET PO SCH (21:23)
--- NOTE | 2020-04-19 22:25 | PDOC ---
Exam Note: Ottoniel Note: Please also refer to the separate dictated note~for this date of service dictated separately.~Patient seen individually. Discussed the patient with Nursing staff reviewed the chart.~Reviewed interim history and current functioning. Reviewed vital signs,~Labs/ Radiology~and current medications noted below. Continue current treatment with the changes noted in the dictated addendum note Assessment: Vital Signs/I&O: Vital Signs Date Time Temp Pulse Resp B/P (MAP) Pulse Ox O2 Delivery O2 Flow Rate FiO2 04/19/20 15:30 98.1 58 18 119/78 (92) 96 04/19/20 05:22 Room Air I & O 04/18/20 04/18/20 04/19/20 15:00 23:00 07:00 Intake Total 720 ml 240 ml Balance 720 ml 240 ml Labs: Laboratory Tests Test 04/19/20 05:55 White Blood Count 4.6 x10^3/uL (4.0-11.0) Red Blood Count 4.07 x10^6/uL (3.50-5.40) Hemoglobin 12.9 g/dL (12.0-15.5) Hematocrit 37.7 % (36.0-47.0) Mean Corpuscular Volume 93 fL (79-100) Mean Corpuscular Hemoglobin 32 pg (25-35) Mean Corpuscular Hemoglobin Concent 34 g/dL (31-37) Red Cell Distribution Width 13.1 % (11.5-14.5) Platelet Count 235 x10^3/uL (140-400) Neutrophils (%) (Auto) 54 % (31-73) Lymphocytes (%) (Auto) 31 % (24-48) Monocytes (%) (Auto) 11 % (0-9) H Eosinophils (%) (Auto) 4 % (0-3) H Basophils (%) (Auto) 1 % (0-3) Neutrophils # (Auto) 2.5 x10^3uL (1.8-7.7) Lymphocytes # (Auto) 1.4 x10^3/uL (1.0-4.8) Monocytes # (Auto) 0.5 x10^3/uL (0.0-1.1) Eosinophils # (Auto) 0.2 x10^3/uL (0.0-0.7) Basophils # (Auto) 0.0 x10^3/uL (0.0-0.2) Sodium Level 143 mmol/L (136-145) Potassium Level 3.3 mmol/L (3.5-5.1) L Chloride Level 104 mmol/L (98-107) Carbon Dioxide Level 32 mmol/L (21-32) Anion Gap 7 (6-14) Blood Urea Nitrogen 18 mg/dL (7-20) Creatinine 0.9 mg/dL (0.6-1.0) Estimated GFR (Cockcroft-Gault) 61.9 BUN/Creatinine Ratio 20 (6-20) Glucose Level 102 mg/dL (70-99) H Calcium Level 8.6 mg/dL (8.5-10.1) Total Bilirubin 0.5 mg/dL (0.2-1.0) Aspartate Amino Transferase (AST) 15 U/L (15-37) Alanine Aminotransferase (ALT) 18 U/L (14-59) Alkaline Phosphatase 121 U/L (46-116) H Total Protein 6.6 g/dL (6.4-8.2) Albumin 3.3 g/dL (3.4-5.0) L Albumin/Globulin Ratio 1.0 (1.0-1.7) Current Medications: I have reviewed the current psychotropics carefully including drug interactions. Risk benefit ratio favors no change other than as noted in my dictated progress note. Diagnosis: Problems: (1) Impulse control disorder, unspecified (2) Anxiety disorder, unspecified (3) Dementia, vascular, with depression (4) Dementia, vascular, with delusions (5) Dementia in Alzheimer's disease with depression (6) Dementia in Alzheimer's disease with delusions (7) Major neurocognitive disorder, due to vascular disease, with behavioral disturbance, mild JANIA BROOKS MD Apr 19, 2020 22:25
[2020-04-20 05:53] VITALS: BP 103/69
[2020-04-20] MEDS: GABAPENTIN 100 MG CAPSULE. PO SCH ×3 (08:16→21:07)
[2020-04-20] MEDS: CELECOXIB 100 MG CAPSULE PO SCH (08:16)
[2020-04-20] MEDS: PANTOPRAZOLE 40 MG TABLET. PO SCH (08:16)
[2020-04-20] MEDS: CLOPIDOGREL BISULFATE 75 MG TABLET PO SCH (08:16)
[2020-04-20] MEDS: SERTRALINE 50 MG TABLET. PO SCH (08:16)
[2020-04-20] MEDS: hydroCHLOROthiazide 12.5 MG CAPSULE PO SCH (08:16)
[2020-04-20] MEDS: FUROSEMIDE 40 MG TABLET PO SCH (08:16)
[2020-04-20] MEDS: RIVASTIGMINE 9.5MG PATCH. TD SCH (08:17)
[2020-04-20 15:41] VITALS: BP 104/71
[2020-04-20] MEDS: SIMVASTATIN 20 MG TABLET PO SCH (21:07)
--- NOTE | 2020-04-20 22:18 | PDOC ---
Exam Note: Ottoniel Note: Please also refer to the separate dictated note~for this date of service dictated separately.~Patient seen individually. Discussed the patient with Nursing staff reviewed the chart.~Reviewed interim history and current functioning. Reviewed vital signs,~Labs/ Radiology~and current medications noted below. Continue current treatment with the changes noted in the dictated addendum note Assessment: Vital Signs/I&O: Vital Signs Date Time Temp Pulse Resp B/P (MAP) Pulse Ox O2 Delivery O2 Flow Rate FiO2 04/20/20 15:41 98.6 85 18 104/71 (82) 95 04/19/20 05:22 Room Air I & O 04/19/20 04/19/20 04/20/20 15:00 23:00 07:00 Intake Total 1080 ml 600 ml Balance 1080 ml 600 ml Current Medications: I have reviewed the current psychotropics carefully including drug interactions. Risk benefit ratio favors no change other than as noted in my dictated progress note. Diagnosis: Problems: (1) Impulse control disorder, unspecified (2) Anxiety disorder, unspecified (3) Dementia, vascular, with depression (4) Dementia, vascular, with delusions (5) Dementia in Alzheimer's disease with depression (6) Dementia in Alzheimer's disease with delusions (7) Major neurocognitive disorder, due to vascular disease, with behavioral disturbance, mild JANIA BROOKS MD Apr 20, 2020 22:18
--- NOTE | 2020-04-20 22:51 | PN ---
DATE: 04/19/2020 PSYCHIATRIC PROGRESS NOTE This late entry 04/19/2020 covers elements not covered in my initial note. Per Nathan RN, the patient is doing better. She has complained of headaches before breakfast. Received Tylenol, somewhat withdrawn, does have expressive aphasia and short-term memory deficits. REVIEW OF SYSTEMS: No CV, , pulmonary, eye system symptoms on review. MENTAL STATUS EXAM: Oriented to herself and situation. Speech is coherent, has some latency. Abstraction fair, computation impaired, language function intact, attention span short. Mood and affect somewhat withdrawn. LABORATORY DATA: Reviewed. IMPRESSION: Unchanged from initial note. PLAN: No change from initial note. MAN Allan BROOKS MD DR: ED/lisa JOB#: [id number] / [id number]
[2020-04-21 06:00] VITALS: BP 103/62
[2020-04-21] MEDS: CELECOXIB 100 MG CAPSULE PO SCH (08:19)
[2020-04-21] MEDS: PANTOPRAZOLE 40 MG TABLET. PO SCH (08:19)
[2020-04-21] MEDS: CLOPIDOGREL BISULFATE 75 MG TABLET PO SCH (08:20)
[2020-04-21] MEDS: hydroCHLOROthiazide 12.5 MG CAPSULE PO SCH (08:20)
[2020-04-21] MEDS: GABAPENTIN 100 MG CAPSULE. PO SCH ×3 (08:20→20:20)
[2020-04-21] MEDS: SERTRALINE 50 MG TABLET. PO SCH (08:20)
[2020-04-21] MEDS: FUROSEMIDE 40 MG TABLET PO SCH (08:20)
[2020-04-21] MEDS: RIVASTIGMINE 9.5MG PATCH. TD SCH (08:21)
[2020-04-21 10:13] LABS: BASO % 1 % (0-3); EOS # 0.2 x10^3/uL (0.0-0.7); EOS % 4 % (0-3); HEMATOCRIT 38.2 % (36.0-47.0); HEMOGLOBIN 12.8 g/dL (12.0-15.5); LYMPH # 1.3 x10^3/uL (1.0-4.8); LYMPH % 30 % (24-48); MEAN CORPUSCULAR HEMOGLOBIN 31 pg (25-35); MEAN CORPUSCULAR HGB CONC 34 g/dL (31-37); MEAN CORPUSCULAR VOLUME 93 fL (79-100); MONO # 0.3 x10^3/uL (0.0-1.1); MONO % 7 % (0-9); NEUT # 2.7 x10^3uL (1.8-7.7); NEUT % 60 % (31-73); PLATELET COUNT 240 x10^3/uL (140-400); RED BLOOD COUNT 4.09 x10^6/uL (3.50-5.40); WHITE BLOOD COUNT 4.6 x10^3/uL (4.0-11.0)
[2020-04-21 13:35] LABS: ALBUMIN 3.4 g/dL (3.4-5.0); CALCIUM 8.6 mg/dL (8.5-10.1); GFR 54.8; POTASSIUM 3.4 mmol/L (3.5-5.1); TOTAL BILIRUBIN 0.6 mg/dL (0.2-1.0); TOTAL PROTEIN 6.9 g/dL (6.4-8.2)
[2020-04-21 15:51] VITALS: BP 106/70
[2020-04-21] MEDS: SIMVASTATIN 20 MG TABLET PO SCH (20:21)
--- NOTE | 2020-04-21 22:12 | PDOC ---
Exam Note: Ottoniel Note: Please also refer to the separate dictated note~for this date of service dictated separately.~Patient seen individually. Discussed the patient with Nursing staff reviewed the chart.~Reviewed interim history and current functioning. Reviewed vital signs,~Labs/ Radiology~and current medications noted below. Continue current treatment with the changes noted in the dictated addendum note Assessment: Vital Signs/I&O: Vital Signs Date Time Temp Pulse Resp B/P (MAP) Pulse Ox O2 Delivery O2 Flow Rate FiO2 04/21/20 15:51 97.7 66 16 106/70 (82) 97 04/21/20 06:00 Room Air I & O 04/20/20 04/20/20 04/21/20 15:00 23:00 07:00 Intake Total 600 ml 360 ml Balance 600 ml 360 ml Labs: Laboratory Tests Test 04/21/20 09:18 White Blood Count 4.6 x10^3/uL (4.0-11.0) Red Blood Count 4.09 x10^6/uL (3.50-5.40) Hemoglobin 12.8 g/dL (12.0-15.5) Hematocrit 38.2 % (36.0-47.0) Mean Corpuscular Volume 93 fL (79-100) Mean Corpuscular Hemoglobin 31 pg (25-35) Mean Corpuscular Hemoglobin Concent 34 g/dL (31-37) Red Cell Distribution Width 13.0 % (11.5-14.5) Platelet Count 240 x10^3/uL (140-400) Neutrophils (%) (Auto) 60 % (31-73) Lymphocytes (%) (Auto) 30 % (24-48) Monocytes (%) (Auto) 7 % (0-9) Eosinophils (%) (Auto) 4 % (0-3) H Basophils (%) (Auto) 1 % (0-3) Neutrophils # (Auto) 2.7 x10^3uL (1.8-7.7) Lymphocytes # (Auto) 1.3 x10^3/uL (1.0-4.8) Monocytes # (Auto) 0.3 x10^3/uL (0.0-1.1) Eosinophils # (Auto) 0.2 x10^3/uL (0.0-0.7) Basophils # (Auto) 0.0 x10^3/uL (0.0-0.2) Sodium Level 142 mmol/L (136-145) Potassium Level 3.4 mmol/L (3.5-5.1) L Chloride Level 102 mmol/L (98-107) Carbon Dioxide Level 29 mmol/L (21-32) Anion Gap 11 (6-14) Blood Urea Nitrogen 19 mg/dL (7-20) Creatinine 1.0 mg/dL (0.6-1.0) Estimated GFR (Cockcroft-Gault) 54.8 BUN/Creatinine Ratio 19 (6-20) Glucose Level 203 mg/dL (70-99) H Calcium Level 8.6 mg/dL (8.5-10.1) Total Bilirubin 0.6 mg/dL (0.2-1.0) Aspartate Amino Transferase (AST) 18 U/L (15-37) Alanine Aminotransferase (ALT) 20 U/L (14-59) Alkaline Phosphatase 128 U/L (46-116) H Total Protein 6.9 g/dL (6.4-8.2) Albumin 3.4 g/dL (3.4-5.0) Albumin/Globulin Ratio 1.0 (1.0-1.7) Current Medications: I have reviewed the current psychotropics carefully including drug interactions. Risk benefit ratio favors no change other than as noted in my dictated progress note. Diagnosis: Problems: (1) Impulse control disorder, unspecified (2) Anxiety disorder, unspecified (3) Dementia, vascular, with depression (4) Dementia, vascular, with delusions (5) Dementia in Alzheimer's disease with depression (6) Dementia in Alzheimer's disease with delusions (7) Major neurocognitive disorder, due to vascular disease, with behavioral disturbance, mild JANIA BROOKS MD Apr 21, 2020 22:12
[2020-04-22 06:06] VITALS: BP 100/57
[2020-04-22] MEDS: CELECOXIB 100 MG CAPSULE PO SCH (08:26)
[2020-04-22] MEDS: GABAPENTIN 100 MG CAPSULE. PO SCH ×3 (08:26→20:46)
[2020-04-22] MEDS: hydroCHLOROthiazide 12.5 MG CAPSULE PO SCH (08:26)
[2020-04-22] MEDS: FUROSEMIDE 40 MG TABLET PO SCH (08:26)
[2020-04-22] MEDS: PANTOPRAZOLE 40 MG TABLET. PO SCH (08:26)
[2020-04-22] MEDS: CLOPIDOGREL BISULFATE 75 MG TABLET PO SCH (08:26)
[2020-04-22 08:27] LABS: CREATININE 0.9 mg/dL (0.6-1.0); GFR 61.9; POTASSIUM 3.4 mmol/L (3.5-5.1)
[2020-04-22] MEDS: SERTRALINE 50 MG TABLET. PO SCH (08:27)
[2020-04-22] MEDS: RIVASTIGMINE 9.5MG PATCH. TD SCH (08:27)
--- NOTE | 2020-04-22 12:56 | PN ---
DATE: 04/21/2020 PSYCHIATRIC PROGRESS NOTE This late entry April 21, covers elements not covered in my initial note. SUBJECTIVE: I met with the patient evening of April 21. Per Edda RN, the patient slept seven three quarter hours previous night. She remains somewhat confused, withdrawn, but appropriate, not aggressive. She did well at night and during the day on April 21. REVIEW OF SYSTEMS: No CV, , pulmonary, eye system symptoms on review. MENTAL STATUS EXAM: Oriented to herself, at times situation. Speech marked by her expressive aphasia. Abstraction fair, computation impaired, language function intact. Mood and affect somewhat withdrawn, but she is more outgoing recently. LABORATORY DATA: Reviewed. IMPRESSION: Unchanged from initial note. PLAN: No change from initial note. MAN lAlan BROOKS MD DR: ED/lisa JOB#: [id number] / [id number]
--- NOTE | 2020-04-22 12:59 | PN ---
DATE: 04/20/2020 PSYCHIATRIC PROGRESS NOTE This late entry 04/20/2020 covers elements not covered in my initial note. SUBJECTIVE: I met with the patient evening of 04/20/2020. Per GEORGIE Evans, the patient slept 9-3/4 hours previous night. She did well at night, remains confused during the day on 04/20/2020. Was dancing in the patio in the evening with other patients in the group. REVIEW OF SYSTEMS: No CV, , pulmonary, eye, ENT system symptoms on review. She does have expressive aphasia. I met with her in her room in the evening. MENTAL STATUS EXAM: Oriented to herself, situation at times. Speech is impacted by her aphasia. Abstraction fair, computation impaired, language function intact. Short term memory is impaired, less paranoid. LABORATORY DATA: Reviewed. IMPRESSION: Unchanged from initial note. PLAN: No change from initial note. MAN Allan BROOKS MD DR: ED/lisa JOB#: [id number] / [id number]
[2020-04-22 16:57] VITALS: BP 96/58
[2020-04-22] MEDS: SIMVASTATIN 20 MG TABLET PO SCH (20:46)
--- NOTE | 2020-04-22 22:17 | PDOC ---
Exam Note: Ottoniel Note: Please also refer to the separate dictated note~for this date of service dictated separately.~Patient seen individually. Discussed the patient with Nursing staff reviewed the chart.~Reviewed interim history and current functioning. Reviewed vital signs,~Labs/ Radiology~and current medications noted below. Continue current treatment with the changes noted in the dictated addendum note Assessment: Vital Signs/I&O: Vital Signs Date Time Temp Pulse Resp B/P (MAP) Pulse Ox O2 Delivery O2 Flow Rate FiO2 04/22/20 16:57 97.4 64 16 96/58 (71) 97 04/22/20 06:06 Room Air I & O 04/21/20 04/21/20 04/22/20 15:00 23:00 07:00 Intake Total 1080 ml 600 ml Balance 1080 ml 600 ml Labs: Laboratory Tests Test 04/22/20 07:50 Sodium Level 142 mmol/L (136-145) Potassium Level 3.4 mmol/L (3.5-5.1) L Chloride Level 104 mmol/L (98-107) Carbon Dioxide Level 30 mmol/L (21-32) Anion Gap 8 (6-14) Blood Urea Nitrogen 19 mg/dL (7-20) Creatinine 0.9 mg/dL (0.6-1.0) Estimated GFR (Cockcroft-Gault) 61.9 Glucose Level 108 mg/dL (70-99) H Calcium Level 9.0 mg/dL (8.5-10.1) Current Medications: I have reviewed the current psychotropics carefully including drug interactions. Risk benefit ratio favors no change other than as noted in my dictated progress note. Diagnosis: Problems: (1) Impulse control disorder, unspecified (2) Anxiety disorder, unspecified (3) Dementia, vascular, with depression (4) Dementia, vascular, with delusions (5) Dementia in Alzheimer's disease with depression (6) Dementia in Alzheimer's disease with delusions (7) Major neurocognitive disorder, due to vascular disease, with behavioral disturbance, mild JANIA BROOKS MD Apr 22, 2020 22:17
[2020-04-23 05:58] VITALS: BP 98/63
[2020-04-23 06:42] LABS: BASO % 1 % (0-3); EOS # 0.2 x10^3/uL (0.0-0.7); EOS % 5 % (0-3); HEMATOCRIT 37.5 % (36.0-47.0); HEMOGLOBIN 12.7 g/dL (12.0-15.5); LYMPH # 1.4 x10^3/uL (1.0-4.8); LYMPH % 30 % (24-48); MEAN CORPUSCULAR HEMOGLOBIN 32 pg (25-35); MEAN CORPUSCULAR HGB CONC 34 g/dL (31-37); MEAN CORPUSCULAR VOLUME 93 fL (79-100); MONO # 0.5 x10^3/uL (0.0-1.1); MONO % 10 % (0-9); NEUT # 2.6 x10^3uL (1.8-7.7); NEUT % 55 % (31-73); PLATELET COUNT 235 x10^3/uL (140-400); RED BLOOD COUNT 4.03 x10^6/uL (3.50-5.40); RED CELL DISTRIBUTION WIDTH 13.5 % (11.5-14.5); WHITE BLOOD COUNT 4.7 x10^3/uL (4.0-11.0)
[2020-04-23 06:45] LABS: ALBUMIN 3.4 g/dL (3.4-5.0); CALCIUM 8.7 mg/dL (8.5-10.1); CREATININE 0.8 mg/dL (0.6-1.0); GFR 70.9; POTASSIUM 3.1 mmol/L (3.5-5.1); TOTAL BILIRUBIN 0.5 mg/dL (0.2-1.0); TOTAL PROTEIN 6.9 g/dL (6.4-8.2)
[2020-04-23] MEDS: PANTOPRAZOLE 40 MG TABLET. PO SCH (08:27)
[2020-04-23] MEDS: CELECOXIB 100 MG CAPSULE PO SCH (08:27)
[2020-04-23] MEDS: GABAPENTIN 100 MG CAPSULE. PO SCH ×3 (08:28→20:21)
[2020-04-23] MEDS: SERTRALINE 50 MG TABLET. PO SCH (08:28)
[2020-04-23] MEDS: CLOPIDOGREL BISULFATE 75 MG TABLET PO SCH (08:28)
[2020-04-23] MEDS: RIVASTIGMINE 9.5MG PATCH. TD SCH (08:28)
[2020-04-23] MEDS: POTASSIUM CHLORIDE 20 MEQ TABLET.ER. PO SCH (08:30)
--- NOTE | 2020-04-23 13:28 | TX PLAN ---
Interdisciplinary Tx Plan Admission Information April 06, 2020 at 16:10 Legal Status (on Admission): Voluntary, Court Appointed Guardian DPOA/Guardian Name: Ashley Fields- guardian Contact Other Contact Name: Major Neal- coin machine service repairer Other Contact Verified Code Status: Full Code Allergies: Coded Allergies: No Known Drug Allergies (Unverified , 04/06/20) Diagnoses Primary Diagnosis: Major neurocognitive disroder vascular Alzheimer's with delusions, depression, BD; Anxiety d/o, Impulse control d/o Reasons for Admission: Agitated, Confusion/Disoriented, Other Problem in Patient's Words: Per Major Neal, coin machine service repairer at [facility], Yoly has had impairmed cognitive ability since the time she was moved in (March 2019) and left by her previous critical care technician. It is a safety concern so Major called APS and Jena was appoineted a guardian recently. Additional Admission Comments: Per intake record, Yoly has trouble articulating her thoughts, difficulty telling you what she wants, poor nutrition, unable to cook meals, answered the door with her shirt off, periods of agitation when she can't express herself fully, went to a Dr. appointment for BP check got disoriented and ended up in o Covid screening tent, and reports she got in a car with a man to go grocery shopping. Problems Active Problems: Aphasia Cognitive impairment Unable to cook for herself Uncertain that she was taking her medications as prescribed Safety concern Little to no family support Inactive Problems: Medication compliant Cooperative with assessments Pt Strengths/Limitations Ability for [place]: Fair Cognitive Functioning/Ability: Fair Communication Skills/Ability: Poor Financial Resources: Fair Insight/Judgement: Poor Intellectual Ability: Fair Physical Health: Fair Social Skills: Fair Stability in Family: Poor Verbal Skills: Poor Discharge Criteria Discharge Criteria: Adequate arrangements @DC, Adequate self-care Preliminary Discharge Plan Preliminary DC Plan: Assisted Living Other Arrangements: [facility] Fall Risk: High Initial D/C Plan Assisted living community for support with homemaking, meal preparation, medication admnsitration, and 24 hour supervision Identified Discharge Needs: F/U with PCP and psychiatrist is available. Currently Utilized Resources Currently Utilized Resources/P: PCP Referrals Community Resources: Psychiatrist Identified Problems/Hx/Goals Objectives/Short-Term Goals Short Term Goals: Medication Stabilization, Monitor Med Effects, Prevent Deterioration Short Term Goals in Patient's: " Trying to see things and go home." Interventions/Frequency Staff Interventions/Frequency&: Nursing to provide routine safety checks, medication administration, and ADL support. Psychiatry 3-5 times per week. SW visits twice weekly. Encouragement to participate in SW and recreational therapy group activities. History Vocational History: Yoly worked as a respiratory therapist. Social: Yoly has enjoyed reading, painting, and going to the [employer]. Education: Yoly states she attended [employer] and graduated 12th grade. She attended training to be a respiratory therapist. Community Follow-up PCP and psychiatry, if available Community Provider/Family Inpu: abhijit Ramirez, will be involved in team meeting on 04/16/2020. Treatment Plan Explained Patient/Post Partum Nurse had this treatment plan explained to him/her as indicated by the signature below and has been given the opportunity to ask questions and make suggestions: Date: Patient/Post Partum Nurse Signature: Status Update Update WEEKLY NOTE/UPDATE: Yoly is averaging 100% of meal intakes and seven hours of sleep. She has been cooperative and compliant with medication administration and nursing assessments. Yoly has been fully engaged with recreational therapy activities and will socialize with peers. She is awaiting new placement at [facility]. Her care plan is being developed by her [employer] medicaid protective services case worker and this must be completed before actual admission can take place. Provided telephone update to abhijit Roman, to inform that Yoly is doing well and is stable for discharge once paperwork for care plan has been completed. Abel is going to send a group email to all parties to determine where we are at in this process. D/C will be arranged once approved by [facility] and [facility]. NATA HAMMOND Apr 23, 2020 13:28
[2020-04-23 16:11] VITALS: BP 111/73
[2020-04-23] MEDS: SIMVASTATIN 20 MG TABLET PO SCH (20:21)
--- NOTE | 2020-04-23 22:14 | PDOC ---
Exam Note: Ottoniel Note: Please also refer to the separate dictated note~for this date of service dictated separately.~Patient seen individually. Discussed the patient with Nursing staff reviewed the chart.~Reviewed interim history and current functioning. Reviewed vital signs,~Labs/ Radiology~and current medications noted below. Continue current treatment with the changes noted in the dictated addendum note Assessment: Vital Signs/I&O: Vital Signs Date Time Temp Pulse Resp B/P (MAP) Pulse Ox O2 Delivery O2 Flow Rate FiO2 04/23/20 16:11 97.5 61 18 111/73 (86) 96 04/22/20 06:06 Room Air I & O 04/22/20 04/22/20 04/23/20 15:00 23:00 07:00 Intake Total 720 ml 360 ml Balance 720 ml 360 ml Labs: Laboratory Tests Test 04/23/20 06:05 White Blood Count 4.7 x10^3/uL (4.0-11.0) Red Blood Count 4.03 x10^6/uL (3.50-5.40) Hemoglobin 12.7 g/dL (12.0-15.5) Hematocrit 37.5 % (36.0-47.0) Mean Corpuscular Volume 93 fL (79-100) Mean Corpuscular Hemoglobin 32 pg (25-35) Mean Corpuscular Hemoglobin Concent 34 g/dL (31-37) Red Cell Distribution Width 13.5 % (11.5-14.5) Platelet Count 235 x10^3/uL (140-400) Neutrophils (%) (Auto) 55 % (31-73) Lymphocytes (%) (Auto) 30 % (24-48) Monocytes (%) (Auto) 10 % (0-9) H Eosinophils (%) (Auto) 5 % (0-3) H Basophils (%) (Auto) 1 % (0-3) Neutrophils # (Auto) 2.6 x10^3uL (1.8-7.7) Lymphocytes # (Auto) 1.4 x10^3/uL (1.0-4.8) Monocytes # (Auto) 0.5 x10^3/uL (0.0-1.1) Eosinophils # (Auto) 0.2 x10^3/uL (0.0-0.7) Basophils # (Auto) 0.0 x10^3/uL (0.0-0.2) Sodium Level 142 mmol/L (136-145) Potassium Level 3.1 mmol/L (3.5-5.1) L Chloride Level 104 mmol/L (98-107) Carbon Dioxide Level 30 mmol/L (21-32) Anion Gap 8 (6-14) Blood Urea Nitrogen 23 mg/dL (7-20) H Creatinine 0.8 mg/dL (0.6-1.0) Estimated GFR (Cockcroft-Gault) 70.9 BUN/Creatinine Ratio 29 (6-20) H Glucose Level 109 mg/dL (70-99) H Calcium Level 8.7 mg/dL (8.5-10.1) Total Bilirubin 0.5 mg/dL (0.2-1.0) Aspartate Amino Transferase (AST) 14 U/L (15-37) L Alanine Aminotransferase (ALT) 18 U/L (14-59) Alkaline Phosphatase 127 U/L (46-116) H Total Protein 6.9 g/dL (6.4-8.2) Albumin 3.4 g/dL (3.4-5.0) Albumin/Globulin Ratio 1.0 (1.0-1.7) Current Medications: Meds: Current Medications Medications (Trade) Dose Ordered Sig/Henri Route PRN Reason Start Time Stop Time Status Last Admin Dose Admin Potassium Chloride (Klor-Con) 20 meq [id number] PO 04/23/20 08:00 04/28/20 07:59 04/23/20 08:30 I have reviewed the current psychotropics carefully including drug interactions. Risk benefit ratio favors no change other than as noted in my dictated progress note. Diagnosis: Problems: (1) Impulse control disorder, unspecified (2) Anxiety disorder, unspecified (3) Dementia, vascular, with depression (4) Dementia, vascular, with delusions (5) Dementia in Alzheimer's disease with depression (6) Dementia in Alzheimer's disease with delusions (7) Major neurocognitive disorder, due to vascular disease, with behavioral disturbance, mild JANIA BROOKS MD Apr 23, 2020 22:14
[2020-04-24 06:31] VITALS: BP 126/84
[2020-04-24] MEDS: GABAPENTIN 100 MG CAPSULE. PO SCH ×3 (08:25→20:46)
[2020-04-24] MEDS: POTASSIUM CHLORIDE 20 MEQ TABLET.ER. PO SCH (08:25)
[2020-04-24] MEDS: PANTOPRAZOLE 40 MG TABLET. PO SCH (08:26)
[2020-04-24] MEDS: CELECOXIB 100 MG CAPSULE PO SCH (08:26)
[2020-04-24] MEDS: SERTRALINE 50 MG TABLET. PO SCH (08:26)
[2020-04-24] MEDS: CLOPIDOGREL BISULFATE 75 MG TABLET PO SCH (08:26)
[2020-04-24] MEDS: RIVASTIGMINE 9.5MG PATCH. TD SCH (08:27)
[2020-04-24 15:43] VITALS: BP 111/74
[2020-04-24] MEDS: SIMVASTATIN 20 MG TABLET PO SCH (20:46)
--- NOTE | 2020-04-24 22:01 | PN ---
DATE: 04/23/2020 PSYCHIATRIC PROGRESS NOTE This late entry, 04/23, covers the elements not covered in my initial note. SUBJECTIVE: I met with the patient on the evening of 04/23. Appetite 100%, slept 7 hours, calmer per GEORGIE Mott. Short term memory is impaired. [facility] in [facility]. REVIEW OF SYSTEMS: No CV, , pulmonary, eye systems symptoms on review. MENTAL STATUS EXAM: Oriented to herself, at times situation. Speech is marked by her expressive aphasia, otherwise coherent, abstraction fair, computation impaired, language function intact, attention span short. Mood and affect withdrawn. LABORATORY DATA: Reviewed. IMPRESSION: Unchanged from initial note. PLAN: No change from initial note. MAN Allan BROOKS MD DR: ED/lisa JOB#: [id number] / [id number]
--- NOTE | 2020-04-24 22:05 | PN ---
DATE: 04/22/2020 This late entry of 04/22 covers elements not covered in my initial note. SUBJECTIVE: I met with the patient on the evening of 04/22. The patient did well the previous night, slept 6-1/4 hours previous night per GEORGIE Moore. She has done well during the day. Potassium was low, and her Lasix and hydrochlorothiazide have been stopped. REVIEW OF SYSTEMS: No CV, , pulmonary, eye system symptoms on review. Reliability varies. MENTAL STATUS EXAMINATION: Oriented to herself. Insight, judgment, recent memory is impaired, remote is better. Language function impaired with expressive aphasia. No suicidal or homicidal ideation. She is somewhat withdrawn, but better. LABORATORY DATA: Reviewed. IMPRESSION: Unchanged from initial note. PLAN: No change from initial note. MAN Allan BROOKS MD DR: ED/lisa JOB#: [id number] / [id number]
--- NOTE | 2020-04-24 22:13 | PDOC ---
Exam Note: Ottoniel Note: Please also refer to the separate dictated note~for this date of service dictated separately.~Patient seen individually. Discussed the patient with Nursing staff reviewed the chart.~Reviewed interim history and current functioning. Reviewed vital signs,~Labs/ Radiology~and current medications noted below. Continue current treatment with the changes noted in the dictated addendum note Assessment: Vital Signs/I&O: Vital Signs Date Time Temp Pulse Resp B/P (MAP) Pulse Ox O2 Delivery O2 Flow Rate FiO2 04/24/20 15:43 97.5 60 20 111/74 (86) 98 04/22/20 06:06 Room Air I & O 04/23/20 04/23/20 04/24/20 14:59 22:59 06:59 Intake Total 720 ml 360 ml 100 ml Balance 720 ml 360 ml 100 ml Current Medications: I have reviewed the current psychotropics carefully including drug interactions. Risk benefit ratio favors no change other than as noted in my dictated progress note. Diagnosis: Problems: (1) Impulse control disorder, unspecified (2) Anxiety disorder, unspecified (3) Dementia, vascular, with depression (4) Dementia, vascular, with delusions (5) Dementia in Alzheimer's disease with depression (6) Dementia in Alzheimer's disease with delusions (7) Major neurocognitive disorder, due to vascular disease, with behavioral disturbance, mild JANIA BROOKS MD Apr 24, 2020 22:13
[2020-04-25 05:58] VITALS: BP 128/78
[2020-04-25 06:30] LABS: BASO % 1 % (0-3); EOS # 0.2 x10^3/uL (0.0-0.7); EOS % 5 % (0-3); HEMATOCRIT 37.3 % (36.0-47.0); HEMOGLOBIN 12.4 g/dL (12.0-15.5); LYMPH # 1.5 x10^3/uL (1.0-4.8); LYMPH % 34 % (24-48); MEAN CORPUSCULAR HEMOGLOBIN 31 pg (25-35); MEAN CORPUSCULAR HGB CONC 33 g/dL (31-37); MEAN CORPUSCULAR VOLUME 94 fL (79-100); MONO # 0.4 x10^3/uL (0.0-1.1); MONO % 9 % (0-9); NEUT # 2.2 x10^3uL (1.8-7.7); NEUT % 51 % (31-73); PLATELET COUNT 227 x10^3/uL (140-400); RED BLOOD COUNT 3.95 x10^6/uL (3.50-5.40); RED CELL DISTRIBUTION WIDTH 13.3 % (11.5-14.5); WHITE BLOOD COUNT 4.3 x10^3/uL (4.0-11.0)
[2020-04-25 06:57] LABS: ALBUMIN 3.2 g/dL (3.4-5.0); ALBUMIN/GLOBULIN RATIO 0.9 (1.0-1.7); CALCIUM 8.6 mg/dL (8.5-10.1); CREATININE 0.7 mg/dL (0.6-1.0); GFR 82.7; POTASSIUM 3.6 mmol/L (3.5-5.1); TOTAL BILIRUBIN 0.3 mg/dL (0.2-1.0); TOTAL PROTEIN 6.6 g/dL (6.4-8.2)
[2020-04-25] MEDS: CELECOXIB 100 MG CAPSULE PO SCH (08:38)
[2020-04-25] MEDS: RIVASTIGMINE 9.5MG PATCH. TD SCH (08:38)
[2020-04-25] MEDS: PANTOPRAZOLE 40 MG TABLET. PO SCH (08:38)
[2020-04-25] MEDS: CLOPIDOGREL BISULFATE 75 MG TABLET PO SCH (08:38)
[2020-04-25] MEDS: GABAPENTIN 100 MG CAPSULE. PO SCH ×3 (08:38→20:56)
[2020-04-25] MEDS: SERTRALINE 50 MG TABLET. PO SCH (08:38)
[2020-04-25] MEDS: POTASSIUM CHLORIDE 20 MEQ TABLET.ER. PO SCH (08:38)
[2020-04-25 15:40] VITALS: BP 111/67
[2020-04-25] MEDS: SIMVASTATIN 20 MG TABLET PO SCH (20:56)
--- NOTE | 2020-04-25 22:30 | PDOC ---
Exam Note: Ottoniel Note: Please also refer to the separate dictated note~for this date of service dictated separately.~Patient seen individually. Discussed the patient with Nursing staff reviewed the chart.~Reviewed interim history and current functioning. Reviewed vital signs,~Labs/ Radiology~and current medications noted below. Continue current treatment with the changes noted in the dictated addendum note Assessment: Vital Signs/I&O: Vital Signs Date Time Temp Pulse Resp B/P (MAP) Pulse Ox O2 Delivery O2 Flow Rate FiO2 04/25/20 15:40 97.5 52 16 111/67 (82) 97 Room Air I & O 04/24/20 04/24/20 04/25/20 14:59 22:59 06:59 Intake Total 600 ml 360 ml Balance 600 ml 360 ml Labs: Laboratory Tests Test 04/25/20 05:45 White Blood Count 4.3 x10^3/uL (4.0-11.0) Red Blood Count 3.95 x10^6/uL (3.50-5.40) Hemoglobin 12.4 g/dL (12.0-15.5) Hematocrit 37.3 % (36.0-47.0) Mean Corpuscular Volume 94 fL (79-100) Mean Corpuscular Hemoglobin 31 pg (25-35) Mean Corpuscular Hemoglobin Concent 33 g/dL (31-37) Red Cell Distribution Width 13.3 % (11.5-14.5) Platelet Count 227 x10^3/uL (140-400) Neutrophils (%) (Auto) 51 % (31-73) Lymphocytes (%) (Auto) 34 % (24-48) Monocytes (%) (Auto) 9 % (0-9) Eosinophils (%) (Auto) 5 % (0-3) H Basophils (%) (Auto) 1 % (0-3) Neutrophils # (Auto) 2.2 x10^3uL (1.8-7.7) Lymphocytes # (Auto) 1.5 x10^3/uL (1.0-4.8) Monocytes # (Auto) 0.4 x10^3/uL (0.0-1.1) Eosinophils # (Auto) 0.2 x10^3/uL (0.0-0.7) Basophils # (Auto) 0.0 x10^3/uL (0.0-0.2) Sodium Level 144 mmol/L (136-145) Potassium Level 3.6 mmol/L (3.5-5.1) Chloride Level 108 mmol/L (98-107) H Carbon Dioxide Level 30 mmol/L (21-32) Anion Gap 6 (6-14) Blood Urea Nitrogen 16 mg/dL (7-20) Creatinine 0.7 mg/dL (0.6-1.0) Estimated GFR (Cockcroft-Gault) 82.7 BUN/Creatinine Ratio 23 (6-20) H Glucose Level 99 mg/dL (70-99) Calcium Level 8.6 mg/dL (8.5-10.1) Total Bilirubin 0.3 mg/dL (0.2-1.0) Aspartate Amino Transferase (AST) 16 U/L (15-37) Alanine Aminotransferase (ALT) 14 U/L (14-59) Alkaline Phosphatase 122 U/L (46-116) H Total Protein 6.6 g/dL (6.4-8.2) Albumin 3.2 g/dL (3.4-5.0) L Albumin/Globulin Ratio 0.9 (1.0-1.7) L Current Medications: I have reviewed the current psychotropics carefully including drug interactions. Risk benefit ratio favors no change other than as noted in my dictated progress note. Diagnosis: Problems: (1) Impulse control disorder, unspecified (2) Anxiety disorder, unspecified (3) Dementia, vascular, with depression (4) Dementia, vascular, with delusions (5) Dementia in Alzheimer's disease with depression (6) Dementia in Alzheimer's disease with delusions (7) Major neurocognitive disorder, due to vascular disease, with behavioral disturbance, mild JANIA BROOKS MD Apr 25, 2020 22:30
[2020-04-26] MEDS ORDERED: MAG-115 PO (00:50)
[2020-04-26] MEDS ORDERED: MAGN24003 PO (00:50)
[2020-04-26] MEDS ORDERED: METH28OI2 TP (00:52)
[2020-04-26] MEDS ORDERED: POTA20TA4 PO (00:53)
[2020-04-26] MEDS ORDERED: RIVA1PAT23 TP (00:55)
[2020-04-26] MEDS ORDERED: SERT50TA PO (00:55)
[2020-04-26 03:51] VITALS: BP 111/54
[2020-04-26] MEDS: CLOPIDOGREL BISULFATE 75 MG TABLET PO SCH (08:01)
[2020-04-26] MEDS: PANTOPRAZOLE 40 MG TABLET. PO SCH (08:02)
[2020-04-26] MEDS: GABAPENTIN 100 MG CAPSULE. PO SCH ×2 (08:03→13:37)
[2020-04-26] MEDS: POTASSIUM CHLORIDE 20 MEQ TABLET.ER. PO SCH (08:03)
[2020-04-26] MEDS: SERTRALINE 50 MG TABLET. PO SCH (08:03)
[2020-04-26] MEDS: CELECOXIB 100 MG CAPSULE PO SCH (08:04)
[2020-04-26] MEDS: RIVASTIGMINE 9.5MG PATCH. TD SCH (08:04)
--- NOTE | 2020-04-26 08:50 | PDOC ---
Exam Note: Ottoniel Note: This note is a late entry for 04/24/2020 covers elements not covered in my initial note. Subjective: The patient was seen face to face in the evening of 04/24/2020. Per Sharri JACQUES, she slept 7-3/4 hours previous night. When questioned she was aware of her date, day and month but not the year. Review of Systems: No CV, , pulmonary, eye system symptoms on review. Mental Status Exam: Reasonably oriented. Speech moderate latency. Abstraction fair. Computation impaired. Language function intact. Memory is impaired. Mood and affect withdrawn, delusional. Laboratory Data: Reviewed. Impression: Major depressive disorder recurrent. Major neurocognitive disorder, probably early vascular with delusions, depression and behavioral disturbance. Expressive aphasia. Rest as above. Plan: No change from initial note. Assessment: Vital Signs/I&O: Vital Signs Date Time Temp Pulse Resp B/P (MAP) Pulse Ox O2 Delivery O2 Flow Rate FiO2 04/26/20 03:51 98.2 57 20 111/54 (73) 95 04/25/20 15:40 Room Air I & O 04/25/20 04/25/20 04/26/20 15:00 23:00 07:00 Intake Total 720 ml 480 ml Balance 720 ml 480 ml Current Medications: I have reviewed the current psychotropics carefully including drug interactions. Risk benefit ratio favors no change other than as noted in my dictated progress note. Diagnosis: Problems: (1) Impulse control disorder, unspecified (2) Anxiety disorder, unspecified (3) Dementia, vascular, with depression (4) Dementia, vascular, with delusions (5) Dementia in Alzheimer's disease with depression (6) Dementia in Alzheimer's disease with delusions (7) Major neurocognitive disorder, due to vascular disease, with behavioral dis turbance, mild JANIA BROOKS MD Apr 26, 2020 08:50
--- NOTE | 2020-04-26 09:18 | PDOC ---
Exam Note: Ottoniel Note: This note is a late entry for 04/25/2020 covers elements not covered in my initial note. Subjective: The patient was seen face to face in the evening of 04/25/2020. Per Nathan JACQUES, she slept 6-1/2 hours previous night. She has been somewhat delusional talking to her kids and grandkids when no one is around. I processed this with her. She denies hallucinations. Review of Systems: No CV, , pulmonary, eye system symptoms on review. Mental Status Exam: Reasonably oriented. Speech moderate latency. Abstraction fair. Computation impaired. Language function intact. Memory is impaired. Mood and affect withdrawn, delusional. Laboratory Data: Reviewed. Impression: Major depressive disorder recurrent. Major neurocognitive disorder, probably early vascular with delusions, depression and behavioral disturbance. Expressive aphasia. Rest as above. Plan: No change from initial note. Continue Exelon patch, Zoloft, gabapentin for now. Assessment: Vital Signs/I&O: Vital Signs Date Time Temp Pulse Resp B/P (MAP) Pulse Ox O2 Delivery O2 Flow Rate FiO2 04/26/20 03:51 98.2 57 20 111/54 (73) 95 04/25/20 15:40 Room Air I & O 04/25/20 04/25/20 04/26/20 15:00 23:00 07:00 Intake Total 720 ml 480 ml Balance 720 ml 480 ml Current Medications: I have reviewed the current psychotropics carefully including drug interactions. Risk benefit ratio favors no change other than as noted in my dictated progress note. Diagnosis: Problems: (1) Impulse control disorder, unspecified (2) Anxiety disorder, unspecified (3) Dementia, vascular, with depression (4) Dementia, vascular, with delusions (5) Dementia in Alzheimer's disease with depression (6) Dementia in Alzheimer's disease with delusions (7) Major neurocognitive disorder, due to vascular disease, with behavioral disturbance, mild JANIA BROOKS MD Apr 26, 2020 09:18
--- NOTE | 2020-04-26 23:15 | PDOC ---
Exam Note: Ottoniel Note: Please also refer to the separate dictated note~for this date of service dictated separately.~Patient seen individually. Discussed the patient with Nursing staff reviewed the chart.~Reviewed interim history and current functioning. Reviewed vital signs,~Labs/ Radiology~and current medications noted below. Continue current treatment with the changes noted in the dictated addendum note Assessment: Vital Signs/I&O: Vital Signs Date Time Temp Pulse Resp B/P (MAP) Pulse Ox O2 Delivery O2 Flow Rate FiO2 04/26/20 03:51 98.2 57 20 111/54 (73) 95 04/25/20 15:40 Room Air I & O 04/25/20 04/25/20 04/26/20 15:00 23:00 07:00 Intake Total 720 ml 480 ml Balance 720 ml 480 ml Current Medications: I have reviewed the current psychotropics carefully including drug interactions. Risk benefit ratio favors no change other than as noted in my dictated progress note. Diagnosis: Problems: (1) Expressive aphasia (2) Dementia, vascular, with depression (3) Dementia, vascular, with delusions (4) Major neurocognitive disorder, due to vascular disease, with behavioral disturbance, mild (5) Major depressive disorder, recurrent episode JANIA BROOKS MD Apr 26, 2020 23:15
--- NOTE | 2020-04-27 21:17 | DS ---
DATE OF DISCHARGE: 04/26/2020 This late entry of 04/26/2020 covers the elements not covered in my initial note. REASON FOR ADMISSION: Please refer to the admission history for details. Briefly, the patient is a 69-year-old female referred to us from home by her primary care physician on account of increasing confusion within the context of marked expressive aphasia and short-term memory deficits. She had difficulty articulating her thoughts, had poor nutrition and unable to care for herself. Behaviors were deemed dangerous, unmanageable at a lower level of care. She had failed outpatient psychiatric interventions resulting in this referral. SIGNIFICANT FINDINGS AND CLINICAL COURSE: Following admission, the patient was seen daily individually by myself from a psychiatric standpoint, medical followup with Dr. Thayer/Dr. Gordon. The patient was quite withdrawn, somewhat depressed, anxious. Neuropsychological testing was completed by Dr. Fuentes with a diagnosis of major neurocognitive disorder, Alzheimer, vascular, unspecified. Adjustments were made in the patient's psychotropics. She seemed to respond to a combination of Exelon patch 9.5 mg a day, Zoloft 50 mg a day, was on gabapentin 100 mg t.i.d. and Celebrex [address] head showed small vessel ischemia. Gradually mood appeared to improve. She was still confused with expressive aphasia, but able to improve with nutrition care for herself. REVIEW OF SYSTEMS: Prior to discharge, 04/27/2020, no CV, , pulmonary, eye system symptoms on review. MENTAL STATUS EXAM: Oriented to herself. Insight, judgment, recent and remote memory, attention, concentration, fund of knowledge poor, consistent with her diagnosis. CONDITION AT DISCHARGE: Improved. FINAL DIAGNOSES: Major neurocognitive disorder, Alzheimer, vascular with delusion, depression, behavioral disturbance; anxiety disorder, unspecified; impulse control disorder, unspecified. DISCHARGE MEDICATIONS: Please refer to the MRAD. DISCHARGE INSTRUCTIONS: Outpatient psychiatric and medical followup at the lower level of care. Time for discharge day management greater than 30 minutes. MAN Allan BROOKS MD DR: ED/lisa JOB#: [id number] / [id number]
--- NOTE | 2020-04-28 00:48 | PN ---
DATE: 04/25/2020 PSYCHIATRIC PROGRESS NOTE This late entry, 04/25, covers the elements not covered in my initial note. SUBJECTIVE: I met with the patient on the evening of 04/25. Per GEORGIE Evans, the patient slept 6-1/2 hours previous night. She has been somewhat delusional at times, talking about kids and grandkids. Some of this is part of her expressive aphasia. REVIEW OF SYSTEMS: No CV, , pulmonary, eye systems symptoms on review. MENTAL STATUS EXAM: Oriented to herself and situation. Speech is coherent, has some latency, expressive language deficits are evident. Abstraction fair, computation impaired, language function intact. Short term memory is impaired. No active suicidal or homicidal ideation. IMPRESSION: Unchanged from initial note. PLAN: No change from initial note. MAN Allan BROOKS MD DR: ED/lisa JOB#: [id number] / [id number]
== END 2020-04-26 13:53 | DRG 57 ==
LOC: ER 13:09 → GEROPSY 16:10
PROVIDERS: ADMIT Psychiatry & Neurology Psychiatry; ATTEND Psychiatry & Neurology Psychiatry
DX: G30.9 Alzheimer's disease, unspecified (principal); F33.9 Major depressive disorder, recurrent, unspecified; F01.51 Vascular dementia, unspecified severity, with behavioral disturbance; F02.81 Dementia in other diseases classified elsewhere, unspecified severity, with behavioral disturbance; N30.01 Acute cystitis with hematuria; R47.01 Aphasia; E66.01 Morbid (severe) obesity due to excess calories; F41.9 Anxiety disorder, unspecified; F63.9 Impulse disorder, unspecified; I10 Essential (primary) hypertension; J45.909 Unspecified asthma, uncomplicated; K21.9 Gastro-esophageal reflux disease without esophagitis; M19.90 Unspecified osteoarthritis, unspecified site; Z79.1 Long term (current) use of non-steroidal anti-inflammatories (NSAID); Z79.899 Other long term (current) drug therapy; Z85.3 Personal history of malignant neoplasm of breast; Z68.37 Body mass index [BMI] 37.0-37.9, adult; Z03.818 Encounter for observation for suspected exposure to other biological agents ruled out
CPT/HCPCS: 36415; 70470; 80048; 80053; 80061; 81001; 82306; 82607; 83036; 83540; 83550; 83735; 84436; 84443; 84480; 85025; 86592; 87086; 87299; 93005; 93971; Q9967; 97110; 99285-25

== ENCOUNTER 2021-04-09 12:45 | Emergency (ER) | payer MEDICARE, MEDICAID ==
[~2021-04-09] VITALS: Ht 167.6 cm; Wt 94.5 kg
[~2021-04-09 12:45] MED LIST: ACET500T68 PO; CELE200C PO; CITA10TA4 PO; CLOP75TA57 PO; DICL100G18 TP; FURO40TA4 PO; GABA100C81 PO; HYDR12.58 PO; IBUP1TAB12 PO; LOPE-101 PO; MAG-115 PO; MAGN24003 PO; MELO15TA23 PO; METH28OI2 TP; OMEP40CA7 PO; POTA20TA4 PO; RIVA1PAT23 TP; SERT50TA PO; SIMV20TA PO; TRAM50TA PO; TRIA15OI TP
[2021-04-09 12:48] VITALS: BP 126/59
--- NOTE | 2021-04-09 12:50 | PHYS DOC ---
Past History Past Medical History: Asthma, Cancer, Dementia, Depression, Fibromyalgia, GERD, Hypertension Past Surgical History: No Surgical History Alcohol Use: None Adult General Chief Complaint Chief Complaint: PSYCH EVALUATION HPI HPI Patient is a 70-year-old female presenting from assisted living facility for [facility] psych evaluation. Patient reportedly was acting out and being violent towards another facility maker. This behavior concerned medical site on staff which requested she be sent to our ER for evaluation for medical causes of her condition. On arrival, patient denies any symptoms. Admits she has history of dementia and is thus, poor historian. With that said, she reports that she does not like x1 individual at her assisted facility and typically gets agitated by her when trying to perform her routine activities of daily living. Today prior to arrival, patient and individual facility got into a verbal altercation that escalated when patient was seen making obscene gestures at other facility member. Patient denies trauma, concerning ingestion, p.o. intake, medical noncompliance with medications or other possible factors. Review of Systems Review of Systems Fourteen body systems of review of systems have been reviewed. See HPI for pertinent positives and negative responses, other roberts all other systems are n egative, non-pertinent or non-contributory Allergies Allergies Allergies Coded Allergies Type Severity Reaction Last Updated Verified No Known Drug Allergies 04/06/20 No Physical Exam Physical Exam Constitutional: Well developed, well nourished, no acute distress, non-toxic appearance. HENT: Normocephalic, atraumatic, bilateral external ears normal, oropharynx moist, no oral exudates, nose normal. Eyes: PERRLA, EOMI, conjunctiva normal, no discharge. Neck: Normal range of motion, no tenderness, supple, no stridor. Cardiovascular: Heart rate regular, sinus rhythm, no murmurs rubs or gallops Lungs & Thorax: Bilateral breath sounds clear to auscultation Abdomen: Bowel sounds normal, soft, no tenderness, no masses, no pulsatile masses. Nonsurgical abdomen, no peritoneal signs Skin: Warm, dry, no erythema, no rash. Back: No tenderness, no CVA tenderness. Extremities: No tenderness, no cyanosis, no clubbing, ROM intact, no edema. Neurologic: Alert and oriented X 3, grossly normal motor & sensory function, no focal deficits noted. Psychologic: Affect normal, mood normal. Current Patient Data Vital Signs Vital Signs Date Time Temp Pulse Resp B/P (MAP) Pulse Ox O2 Delivery O2 Flow Rate FiO2 04/09/21 12:48 98.2 70 16 126/59 (81) 98 Room Air Vital Signs Date Time Temp Pulse Resp B/P (MAP) Pulse Ox O2 Delivery O2 Flow Rate FiO2 04/09/21 12:48 98.2 70 16 126/59 (81) 98 Room Air Lab Results Laboratory Tests Test 04/09/21 13:42 White Blood Count 5.6 x10^3/uL Red Blood Count 4.03 x10^6/uL Hemoglobin 12.3 g/dL Hematocrit 37.5 % Mean Corpuscular Volume 93 fL Mean Corpuscular Hemoglobin 31 pg Mean Corpuscular Hemoglobin Concent 33 g/dL Red Cell Distribution Width 13.4 % Platelet Count 266 x10^3/uL Neutrophils (%) (Auto) 65 % Lymphocytes (%) (Auto) 24 % Monocytes (%) (Auto) 8 % Eosinophils (%) (Auto) 3 % Basophils (%) (Auto) 1 % Neutrophils # (Auto) 3.6 x10^3uL Lymphocytes # (Auto) 1.3 x10^3/uL Monocytes # (Auto) 0.4 x10^3/uL Eosinophils # (Auto) 0.1 x10^3/uL Basophils # (Auto) 0.0 x10^3/uL Sodium Level 143 mmol/L Potassium Level 4.0 mmol/L Chloride Level 108 mmol/L Carbon Dioxide Level 25 mmol/L Anion Gap 10 Blood Urea Nitrogen 16 mg/dL Creatinine 0.8 mg/dL Estimated GFR (Cockcroft-Gault) 70.7 Glucose Level 116 mg/dL Calcium Level 8.9 mg/dL Troponin I Quantitative < 0.017 ng/mL EKG EKG EKG ordered and interpreted by myself at 1311 hrs. as sinus rhythm at 67 bpm, unremarkable intervals, left axis deviation, no acute ischemic findings, no STEMI Radiology/Procedures Radiology/Procedures Single view chest dated 04/09/2021. No comparison available. CLINICAL INDICATION: Chest pain. FINDINGS: Single upright portable exam performed. Heart and mediastinal contours within normal limits. Moderate to large hiatal hernia. No consolidation or pleural effusion. No pneumothorax. IMPRESSION: 1. No acute radiographic abnormality. 2. Hiatal hernia Electronically signed by: Jorge Ruffin MD (04/09/2021 1:21 PM) [facility] Heart Score C/O Chest Pain: No HEART Score for Chest Pain: HEART Score for Chest Pain Response (Comments) Value History Slighlty/Non-Suspicious 0 ECG Normal 0 Age > 65 2 Risk Factors >3 Risk Factors or Hx CAD 2 Troponin < Normal Limit 0 Total 4 Risk Factors: Risk Factors: DM, Current or recent (<one month) smoker, HTN, HLP, family history of CAD, obesity. Risk Scores: Risk Factors: DM, Current or recent (<one month) smoker, HTN, HLP, family history of CAD, obesity. Course & Med Decision Making Course & Med Decision Making Hemodynamically stable patient with HPI, physical exam and ER work-up nonconcerning for emergent or surgical issues. No obvious concern for mental instability in a nonagitated patient who is AOx4 in no acute distress Patient evaluated by qualified mental health professional who reviewed any appropriate supporting documentation and previous available medical records and feels patient does not meet criteria for admission to a mental health facility. In addition, there is no capacity for patient at [facility] health professional contacted patient's assisted living facility and reviewed case. There is no medical indication for keeping patient in ER at present. Patient is safe to return home with strict return precautions. Patient's court ordered POA contacted to discuss transfer to memory care unit. I feel this is appropriate. I updated patient on proposed plan of care and she was amenable. Remained pleasant, in no acute distress and safe for departure back to assisted living facility with instructions to avoid problems tendon at assisted living facility Dragon Disclaimer Dragon Disclaimer This electronic medical record was generated, in whole or in part, using a voice recognition dictation system. Departure Departure: Impression: Primary Impression: Major neurocognitive disorder, due to vascular disease, with behavioral disturbance, mild Disposition: 01 HOME / SELF CARE / HOMELESS Condition: STABLE Referrals: PCP,UNKNOWN (PCP) Patient Instructions: Dementia, [id number] Additional Instructions: As discussed prior to ER departure, please discuss with your court ordered att orney about need for transfer out of current assisted living facility to memory care unit or other equivalent. As discussed, your vital signs, physical exam and comprehensive work-up performed in ER setting was nonconcerning for any emergent or surgical issues. If any concerning signs or symptoms present prior to outpatient follow-up please do not hesitate to come back for repeat evaluation. It was a pleasure to take care of you and I wish you the best going forward SPIKE PATEL DO Apr 09, 2021 12:50
--- NOTE | 2021-04-09 13:23 | RAD ---
Single view chest dated 04/09/2021. No comparison available. CLINICAL INDICATION: Chest pain. FINDINGS: Single upright portable exam performed. Heart and mediastinal contours within normal limits. Moderate to large hiatal hernia. No consolidation or pleural effusion. No pneumothorax. IMPRESSION: 1. No acute radiographic abnormality. 2. Hiatal hernia Electronically signed by: Jorge Ruffin MD (04/09/2021 1:21 PM) [facility]ICARD[facility]
[2021-04-09 14:22] LABS: CALCIUM 8.9 mg/dL (8.5-10.1); CREATININE 0.8 mg/dL (0.6-1.0); GFR 70.7
[2021-04-09 14:26] LABS: BASO % 1 % (0-3); EOS # 0.1 x10^3/uL (0.0-0.7); EOS % 3 % (0-3); HEMATOCRIT 37.5 % (36.0-47.0); HEMOGLOBIN 12.3 g/dL (12.0-15.5); LYMPH # 1.3 x10^3/uL (1.0-4.8); LYMPH % 24 % (24-48); MEAN CORPUSCULAR HEMOGLOBIN 31 pg (25-35); MEAN CORPUSCULAR HGB CONC 33 g/dL (31-37); MEAN CORPUSCULAR VOLUME 93 fL (79-100); MONO # 0.4 x10^3/uL (0.0-1.1); MONO % 8 % (0-9); NEUT # 3.6 x10^3uL (1.8-7.7); NEUT % 65 % (31-73); PLATELET COUNT 266 x10^3/uL (140-400); RED BLOOD COUNT 4.03 x10^6/uL (3.50-5.40); RED CELL DISTRIBUTION WIDTH 13.4 % (11.5-14.5); WHITE BLOOD COUNT 5.6 x10^3/uL (4.0-11.0)
--- NOTE | 2021-04-09 14:40 | EKG ---
[address] [address] Test Date: 2021-04-09 Test Time: 13:10:00 Pat Name: MERARI BRADSHAW Department: Room: Gender: F Rn Medical Inpatient Services: ALISHA : 1950 Requested By: PSIKE PATEL Order Number: [id number] Reading MD: Josep Gonzales Measurements Intervals [place] Rate: 67 P: 21 NC: 170 QRS: -21 QRSD: 80 T: 9 QT: 418 QTc: 445 Interpretive Statements SINUS RHYTHM LEFTWARD AXIS Electronically Signed On 04-09-2021 14:53:18 CDT by Josep Gonzales
[2021-04-09 14:51] LABS: BILIRUBIN,URINE NEG (NEG); CLARITY,URINE CLEAR; COLOR,URINE YELLOW; GLUCOSE,URINE NEG (NEG); NITRITE,URINE NEG (NEG); UROBILINOGEN,URINE 0.2 mg/dL (0.2 mg/dL)
[2021-04-09 14:52] LABS: BACTERIA,URINE 0 /HPF (0-FEW); SQUAMOUS EPITHELIAL CELL,UR OCC /LPF; WBC,URINE 0 /HPF (0-4)
== END 2021-04-09 16:46 | disposition home or self-care (01) ==
LOC: ER 12:45
DX: F01.51 Vascular dementia, unspecified severity, with behavioral disturbance (principal); J45.909 Unspecified asthma, uncomplicated; F03.90 Unspecified dementia, unspecified severity, without behavioral disturbance, psychotic disturbance, mood disturbance, and anxiety; F32.9 Major depressive disorder, single episode, unspecified; M79.7 Fibromyalgia; K21.9 Gastro-esophageal reflux disease without esophagitis; I10 Essential (primary) hypertension
CPT/HCPCS: 36415; 71045; 80048; 81001; 84484; 85025; 93005; 99285